=== PATIENT | male | born 1940 | race Caucasian/White ===

== ENCOUNTER 2021-05-03 10:47 | Emergency (ER) | payer BC, SELFPAY ==
[2021-05-03 11:57] VITALS: BP 109/64; PULSE 67; RESP 18; TEMP 36.7; O2SAT 97; BMI 26.6
--- NOTE | 2021-05-03 12:28 | HMH.EDUTC ---
[facility] Disposition Clinical Impression: Sinusitis Qualifiers: Sinusitis location: unspecified location Chronicity: unspecified Qualified Code(s): J32.9 - Chronic sinusitis, unspecified Disposition: Home, Self-Care Condition on Discharge: Good Instructions: Sinusitis, DI for Sinusitis, DI for COVID-19 (Suspected or Confirmed ), Preventing the Spread of Coronavirus Discharge Instructions Additional Instructions: *Monitor Temp, Over the counter Motrin or Tylenol as directed/as needed Tylenol every 4 hours and Motrin every 6 hours (as long as your family doctor has told you that you can take it) for fever or pain. and straight to ER if unable to lower temp less than 101.0 after medication given *Warm salt water gargles may help to soothe the throat *Throat Lozenges *Warm fluids like tea with honey may help to soothe the throat *Sleep elevated *Humidifier/Vaporizer *Flonase 2 sprays in each nostril daily but be aware that it may take 2-3 days before you notice improvement *Bromfed may cause drowsiness. Know how it effects you (your child) before driving, caring for small child, or sending your child to school. Not other antihistamines/allergy medications while taking bromfed Your throat swab was sent for culture. Those results are typically sent to your primary care. Be sure to follow up in 2-3 days with your family doctor/primary care physician if no improvement so they can review those result and treat if necessary. If you don?t have a primary care doctor, I recommend you get one but in the mean time, you will have to return to a walk in clinic Follow up IMMEDIATELY for new or worsening symptoms or no Noticeable improvement over the next 48-72 hours. 911 for difficulty breathing or swallowing You were tested for today for COVID19 your test result should be back in the next 24-48 hours, you was given handout on how to [facility] the [facility] to view your results if you cannot log on or do not have internet access you may call the [facility] You was given a handout with instructions for Self Quarantine and Self isolation for while you wait on test results and what to do if they are positive If you are positive the Health Dept will be contacting you also Make sure to take your Vitamins Vit. C Vit D and Zinc if you can take them Prescriptions: Amoxicillin/Potassium Clav [Augmentin 875-125 Tablet] 1 tab PO Q12H 7 Days #14 tab Transmission Status: Pending to [facility] Fluticasone Propionate [Flonase 50mcg nasal spray 16gm] 1 spr NS DAILY #1 each Transmission Status: Pending to [facility] Referrals: Ramon Magallanes [Primary Care Provider] - As needed Time of Disposition: 12:38 Medical Decision Making - Juan R Inquiry Pt receiving controlled substance: No Juan R was queried for this patient: No Vital Signs: 05/03/21 11:57 Temperature 98.0 F Temperature Source Temporal Artery Scan Pulse Rate [Right Brachial] 67 Respiratory Rate 18 Blood Pressure [Right Arm] 109/64 L Blood Pressure Mean [Right Arm] 79 Blood Pressure Source [Right Arm] Automatic Cuff Blood Pressure Position [Right Arm] Sitting 02 Sat by Pulse Oximetry 97 Oxygen Delivery Method Room Air Orders (Tests/Meds): ORDERS Category Date Time Status Covid-19 Nasal PCR ([facility]) Routine Lab 05/03/21 11:36 Received Medical Decision Narrative: Patient states that [facility] HPI - General Stated complaint: so, sore throat, headache, conestion body aches Time Seen by Provider: 05/03/21 12:00 Mode of Arrival: Ambulatory Source of Information: Patient Description of Symptoms (Recalled from Triage Doc. by RN): dry cough, weakness, headache, sob, fever, HEENT Symptoms (Recalled from RN notes): Yes Resp Symptoms (Recalled from RN notes): Yes Skin Symptoms (Recalled from RN notes): No MS Symptoms (Recalled from RN notes): No Functional Status (Recalled from RN notes): yes - History of Present Illness Provider Complaint: Patient state that h
[2021-05-03 12:50] VITALS: BP 109/64; PULSE 67; RESP 18; TEMP 36.7; O2SAT 97
== END 2021-05-03 12:50 | disposition home or self-care (01) ==
PROVIDERS: Emergency Provider Nurse Practitioner; PCP Internal Medicine
DX: J32.9 Chronic sinusitis, unspecified (principal); Z20.822 Contact with and (suspected) exposure to COVID-19
CPT/HCPCS: 99202; C9803; G0463; U0003; U0005

== ENCOUNTER → 2022-06-01 10:18 | Outpatient (POV) | payer BC, SELFPAY | PROVIDERS: Visit Provider Dermatology | DX: Z00.00 Encounter for general adult medical examination without abnormal findings (principal) ==

== ENCOUNTER 2022-07-04 15:04 | Emergency (ER) | payer BC, MEDICARE, SELFPAY ==
[2022-07-04 15:04] VITALS: BP 113/68; PULSE 87; RESP 18; TEMP 37.2; O2SAT 95; BMI 27.3
[2022-07-04 15:31] VITALS: BP 124/65; PULSE 89; RESP 20; O2SAT 90
[2022-07-04 15:38] LABS: Basophils # 0.1 K/mm3 (0-0.2); Basophils % 0.8 % (0.1-2.0); Eosinophils % 0.3 % (0.1-12.0); Hematocrit 36.4 % (42.0-52.0); Hemoglobin 12.1 g/dL (14.1-18.0); Lymphocytes # 0.7 K/mm3 (0.7-4.5); Lymphocytes % 5.6 % (10-50); Mean Corpuscular HGB Conc 33.4 g/dL (31.8-35.4); Mean Corpuscular Hemoglobin 31.7 pg (27.0-31.2); Mean Platelet Volume 7.9 fl (7.4-10.4); Monocytes # 1.1 K/mm3 (0.1-1.0); Monocytes % 8.5 % (1.7-9.3); Neutrophils # 10.6 K/mm3 (1.8-7.8); Neutrophils % 84.8 % (37.0-80.0); Platelet Count 371 K/mm3 (142-424); Red Blood Count 3.83 M/mm3 (4.60-6.20); Red Cell Distribution Width 12.8 % (11.5-17.5); White Blood Count 12.5 K/mm3 (4.8-10.8)
[2022-07-04 15:38] LABS: Coronavirus 19, PCR Not Detected (NotDetected); Influenza A, PCR Not Detected (NotDetected); Influenza B, PCR Not Detected (NotDetected)
[2022-07-04 15:41] LABS: Chloride 92 mmol/L (98-107); Potassium 3.4 mmoL/L (3.5-5.1); Sodium 130 mmol/L (136-145)
[2022-07-04 15:43] LABS: Alanine Aminotransferase 17 U/L (12-78); Aspartate Amino Transferase 24 U/L (17-59); Blood Urea Nitrogen 23 mg/dl (9-20); Creatinine Clearance Estimated 57 mL/min (50-200); Estimated Glomerular Filt Rate 58 ml/min (>60); GFR (African American) 70 ML/MIN (>60)
[2022-07-04 15:44] LABS: Albumin Level 3.7 g/dl (3.5-5.0); Alkaline Phosphatase 81 U/L (38-126); Anion Gap 13.4 mEq/L (5-15); Bilirubin,Total 0.9 mg/dl (0.2-1.3); Calcium 8.9 mg/dl (8.4-10.2); Carbon Dioxide 28 mmol/L (22.0-30.0); Globulin 3.6 g/dL (1.3-3.2); Glucose 131 mg/dl (74-100); Total Protein,Serum 7.3 g/dl (6.3-8.2)
--- NOTE | 2022-07-04 16:59 | HMH.EDGENADL ---
Discharge Plan Disposition Patient Disposition: Home, Self-Care Condition: Fair Prescriptions Prescriptions: New ciprofloxacin HCl [Cipro] 500 mg tablet 500 mg PO BID Qty: 20 0RF No Action tamsulosin 0.4 MG capsule 0.4 mg PO HS amlodipine 10 MG tablet 10 mg PO DAILY fluticasone propionate 120 SPR/BOT bottle 1 spr NS DAILY Qty: 1 0RF Rx Instructions: each nostril daily amoxicillin-pot clavulanate 1 EACH tablet 1 tab PO Q12H 7 Days Qty: 14 0RF Referrals Follow up/Referrals: Abhijeet Gerber MD [Primary Care Provider] - See instructions Activity Restrictions/Add. Instructions Additional Instructions/Restrictions: Cipro as prescribed. Start tomorrow. Follow-up with your urologist on Tuesday as scheduled. Additional instructions for URINARY TRACT INFECTION: Take antibiotic as prescribed. See your physician in 2-3 days for follow up and culture results. Return immediately if you have an uncontrollable fever greater than 102 degrees, severe back or abdominal pain, inability to urinate, or repetitive vomiting. Clinical Impressions Clinical Impression: Urinary tract infection Instructions Patient Instructions: DI for Urinary Tract Infection (UTI) Discharge ED Provider: Jonathan Man General Adult HPI General Chief complaint: Fever Stated complaint: vomiting Time Seen by Provider: 07/04/22 16:47 Mode of Arrival: EMS Source of Information: Patient Limitations: No Limitations Description of Symptoms (Recalled from ER Triage Doc. by RN): c/o fever, aches, chills and vomiting for 3 days. History of Present Illness HPI narrative: He does notPatient states that he has a urinary problem. States that he has urinary urgency get to the bathroom right away he will urinate on himself, states he is having to wear a diaper. States he is also had fevers, aches, and chills for the past 3 days. He does have a prior history of a urinary tract infection. States that he sees a urologist, in fact has an appointment on Tuesday. Denies flank or back pain. He says that he was plugged up , constipated, about 4 days ago and was having some pain in his lower abdomen to the left lower quadrant area, but he says that his constipation resolved and his pain went away, denies any current abdominal pain. He does have a cough. States he is occasionally a little short of breath. Related Data Home Medications Medication Instructions Recorded Confirmed amlodipine 10 mg tablet 10 mg PO DAILY bp 05/03/21 05/03/21 tamsulosin 0.4 mg capsule 0.4 mg PO HS prostate 05/03/21 05/03/21 Previous Rx's Medication Instructions Recorded amoxicillin 875 mg-potassium 1 tab PO Q12H 7 days #14 tabs 05/03/21 clavulanate 125 mg tablet fluticasone propionate 50 1 spr NS DAILY #1 ea 05/03/21 mcg/actuation nasal spray,suspension ciprofloxacin HCl 500 mg tablet 500 mg PO BID #20 tabs 07/04/22 (Cipro) Allergies Allergy/AdvReac Type Severity Reaction Status Date / Time No Known Allergies Allergy Verified 05/03/21 12:15 PFSH PFSH Social History Smoking Status: Never smoker alcohol intake: never current occupational status: other Travel in the last 8 weeks: None current occupational exposures/hazards: No ROS Obtained: Yes Systems reviewed as appropriate & no additional complaints except as documented Constitutional Constitutional: Reports body ache, Reports chills, Reports fever(s), Denies headache(s) and Denies weakness ENT Ears, Nose, Mouth, and Throat: Denies headache(s), Denies nasal discharge and Denies sore throat Cardiovascular Cardiovascular: Denies chest pain Respiratory Respiratory: Reports shortness of breath and Reports cough Gastrointestinal Gastrointestingal: Reports abdominal pain and constipation; Denies diarrhea or vomiting Genitourinary Male Genitourinary: Denies flank pain, Reports urinary incontinence and Reports urinary urgency Musculoskeletal Musculoskeletal:
[2022-07-04 17:00] LABS: Microscopic, Urine URINE MICROSCOPIC (MICROSCOPIC)
--- NOTE | 2022-07-04 17:00 | XR_ITS ---
PROCEDURE INFORMATION: Exam: XR Chest Exam date and time: 07/04/2022 5:06 PM Age: 82 years old Clinical indication: Cough and fever; Additional info: Cough, fever TECHNIQUE: Imaging protocol: Radiologic exam of the chest. Views: 2 views. COMPARISON: No relevant prior studies available. FINDINGS: Lungs: Mild prominence of the interstitial markings most pronounced at the lung bases. Superimposed regions of peribronchial thickening. Pleural spaces: Unremarkable. No pleural effusion. No pneumothorax. Heart/Mediastinum: Unremarkable. No cardiomegaly. Bones/joints: Spondylosis with multiple mild compression fracture deformities mid to lower thoracic spine most likely chronic. IMPRESSION: Findings suggesting changes of interstitial lung disease with superimposed mild changes of bronchitis.
[2022-07-04 17:08] LABS: Appearance,Urine SL CLOUDY (Clear); Bilirubin,Urine Negative (Negative); Blood, Urine 2+ (Negative); Color,Urine YELLOW (Yellow); Glucose,Urine (UA) Negative (Negative); Ketones,Urine 1+ (Negative); Leukocyte Esterase,Urine 3+ (Negative); Nitrate,Urine POSITIVE (Negative); Protein,Urine 2+ (Negative); Specific Gravity, Urine 1.025 (1.005-1.030); Urobilinogen,Urine 0.2 EU/dl (0.2)
[2022-07-04 17:14] LABS: WBC,Urine 20-50 #/hpf (0-3)
[2022-07-04 17:15] LABS: Bacteria,Urine 3+ /lpf; Squamous Epithelial Cell,Urine Occasional #/hpf (0-5)
--- NOTE | 2022-07-04 18:06 | PC.NURSE ---
LAB HERE TO DRAW LACTIC AND CULTURE . LULÚ NOT STARTED WAITING ON LAB
[2022-07-04 18:41] LABS: Lactic Acid 0.8 mmol/L (0.7-2.1)
[2022-07-04 19:23] VITALS: BP 106/44; PULSE 82; RESP 18; TEMP 37; O2SAT 97
== END 2022-07-04 19:26 | disposition home or self-care (01) ==
PROVIDERS: Emergency Provider Emergency Medicine; PCP Family Medicine
DX: N39.0 Urinary tract infection, site not specified (principal); K59.00 Constipation, unspecified; R06.02 Shortness of breath; S32.010A Wedge compression fracture of first lumbar vertebra, initial encounter for closed fracture; Z20.822 Contact with and (suspected) exposure to COVID-19; R05.9 Cough, unspecified; R11.10 Vomiting, unspecified; M79.10 Myalgia, unspecified site; Z79.52 Long term (current) use of systemic steroids; Z79.899 Other long term (current) drug therapy
CPT/HCPCS: 36415; 71046; 80053; 81001; 83605; 85025; 87040; 87077; 87086; 87088; 87186; 96374; 99284; C9803; J0696; J2405; U0003; U0005

== ENCOUNTER 2022-07-06 13:40 | Emergency (ER) | payer BC, MEDICARE, SELFPAY ==
[2022-07-06 13:41] VITALS: BP 119/69; PULSE 67; RESP 18; TEMP 36.4; O2SAT 99; BMI 26.6
[2022-07-06 14:30] VITALS: BP 124/62; PULSE 66; RESP 18; O2SAT 95
--- NOTE | 2022-07-06 14:58 | HMH.EDGENADL ---
Discharge Plan Disposition Patient Disposition: Home, Self-Care Condition: Good Chief Complaint: Recheck/Abnormal Lab/Rx Prescriptions Prescriptions: No Action ciprofloxacin HCl [Cipro] 500 mg tablet 500 mg PO BID Qty: 20 0RF tamsulosin 0.4 MG capsule 0.4 mg PO HS amlodipine 10 MG tablet 10 mg PO DAILY fluticasone propionate 120 SPR/BOT bottle 1 spr NS DAILY Qty: 1 0RF Rx Instructions: each nostril daily amoxicillin-pot clavulanate 1 EACH tablet 1 tab PO Q12H 7 Days Qty: 14 0RF Referrals Follow up/Referrals: Abhijeet Gerber MD [Primary Care Provider] - See instructions Activity Restrictions/Add. Instructions Additional Instructions/Restrictions: Your preliminary blood culture results show 1 set growing gram-positive cocci, staph. The other set of blood cultures is not growing anything. Your urine culture is growing gram-negative rods which is likely E. coli. Therefore the bacteria in your blood culture is not the same as the bacteria in your urine. This combination of findings is most likely caused by a urinary tract infection with E. coli, and blood culture bottles that are contaminated with staph and not an actual infection in your bloodstream. Continue taking Cipro as prescribed. See your primary care provider tomorrow. Return to the emergency department if worsening symptoms. Clinical Impressions Clinical Impression: Urinary tract infection Instructions Patient Instructions: DI for Urinary Tract Infection (UTI) Discharge ED Provider: Jonathan Man General Adult [facility] General Chief complaint: Recheck/Abnormal Lab/Rx Stated complaint: UTI, sent by Dr. Gerber Time Seen by Provider: 07/06/22 14:32 Mode of Arrival: Ambulatory Source of Information: Patient Limitations: No Limitations Description of Symptoms (Recalled from ER Triage Doc. by RN): Pt reports he was told to come back to the ER by his primary doctors office, states they were called with pt with lab results and told him to come back. Pt reports he was on his way to his already scheduled urology doctors appt but was told by doctors office to not to go appt and come back to the ER. After looking in pts chart and speaking with pts doctors office, states they were called by lab today with cultures results that were postive for staph . Pt reports did have a fever this morning, pt reports he is not feeling any better since ER visit on Tuesday but he is not feeling any worse. Pt reports his urinary incontinence has improved but not resolved. History of Present Illness HPI narrative: Patient states he was sent to the emergency department by his primary care doctor's office because of a positive preliminary blood culture result. The patient was seen by me in this emergency department 2 days ago for urinary tract infection. He had urine culture and blood cultures performed. He says that he was on his way to see his urologist today, was less than 1 mile away from his urologist office for his appointment when he got a call from his primary care doctor's office telling him that he should go back to the hospital because of a positive blood culture result. His urologist is at [facility], he says that he drove himself all the way back down here. On interaction with our nurse in the emergency department he was not sure whether he wanted to be seen in the emergency department but eventually decided that he did not want to be seen. He states that his urinary symptoms have improved since he was here on Tuesday. He felt feverish last night but says that he broke out in a sweat and feels like his fever broke without any specific treatment. He is not having any abdominal pain. He has chronic back pain which is unchanged from his usual. He is not vomiting. He feels generally weak. Related Data Home Medications Medication Instructions Recorded Confirmed amlodipine 10 mg tablet 10 mg PO DAILY bp
[2022-07-06 15:00] VITALS: BP 133/61; PULSE 62; O2SAT 97
[2022-07-06 15:15] VITALS: PULSE 63; O2SAT 97
[2022-07-06 15:31] VITALS: BP 133/61; PULSE 62; RESP 18; TEMP 36.4; O2SAT 97
== END 2022-07-06 15:31 | disposition home or self-care (01) ==
PROVIDERS: Emergency Provider Emergency Medicine; PCP Family Medicine
DX: N39.0 Urinary tract infection, site not specified (principal); R53.1 Weakness; R61 Generalized hyperhidrosis; R50.9 Fever, unspecified; M54.9 Dorsalgia, unspecified; G89.29 Other chronic pain; Z79.51 Long term (current) use of inhaled steroids
CPT/HCPCS: 99283

== ENCOUNTER 2022-07-30 14:59 | Inpatient (IN) | payer MEDICARE, BC, SELFPAY ==
[2022-07-30] VITALS (17 sets, daily range): BP systolic 75–213; BP diastolic 32–68; PULSE 75–120; RESP 16–31; TEMP 36.6–36.9; O2SAT 93–99; BMI 27.3; BMI 27.8
--- NOTE | 2022-07-30 15:38 | XR_ITS ---
FINAL REPORT CLINICAL HISTORY: soa COMPARISON: July 04, 2022 FINDINGS: A single portable view of the chest was obtained. The heart size and pulmonary vascularity are within normal limits. The mediastinum is within normal limits. There are persistent bibasilar opacities, favor atelectasis or scarring. The bony thorax is intact. IMPRESSION: Persistent bibasilar opacities favor atelectasis or scarring. Reviewed, Interpreted and Dictated by Guy Lozoya III, MD Transcribed by Radha Roman Authenticated and [facility]
--- NOTE | 2022-07-30 15:46 | HMH.EDGENADL ---
Discharge Plan Disposition Patient Disposition: Admitted As Inpatient Condition: Serious Chief Complaint: Weakness Prescriptions Prescriptions: No Action ciprofloxacin HCl [Cipro] 500 mg tablet 500 mg PO BID Qty: 20 0RF tamsulosin 0.4 MG capsule 0.4 mg PO HS amlodipine 10 MG tablet 10 mg PO DAILY fluticasone propionate 120 SPR/BOT bottle 1 spr NS DAILY Qty: 1 0RF Rx Instructions: each nostril daily amoxicillin-pot clavulanate 1 EACH tablet 1 tab PO Q12H 7 Days Qty: 14 0RF Referrals Follow up/Referrals: Provider,Referral, MD [Referring] - See instructions Clinical Impressions Clinical Impression: Acute UTI, Septic shock, Non-ST elevation [place] (NSTEMI), Lymphadenopathy, Respiratory failure Discharge ED Provider: Sunny Boudreaux General Adult HPI General Chief complaint: Weakness Stated complaint: possibly urinary infection Time Seen by Provider: 07/30/22 15:20 History of Present Illness HPI narrative: Patient is an 82-year-old male with recently diagnosed urinary tract infection on oral antibiotics who presents to the emergency department for evaluation of shortness of breath, dysuria, urinary frequency and urgency. Patient has had waxing and waning symptoms of shortness of breath over the last 2 months that have worsened over the last 3 days. Patient was previously treated for urinary tract infection with oral antibiotics for which he states symptoms significantly improved however over the last 48 hours he has had severe urgency for which he is unable to make it to the bathroom without voiding on himself. Patient is normally ambulatory at baseline and continues to be ambulatory, denies bowel incontinence, numbness or weakness of the bilateral lower extremities. Patient has mild cough which waxes and wanes. Denies current chest pain. No other acute complaints at this time. Per chart review patient had recent urinary tract infection of E. coli that was pansensitive. Related Data Home Medications Medication Instructions Recorded Confirmed amlodipine 10 mg tablet 10 mg PO DAILY bp 05/03/21 05/03/21 tamsulosin 0.4 mg capsule 0.4 mg PO HS prostate 05/03/21 05/03/21 Previous Rx's Medication Instructions Recorded amoxicillin 875 mg-potassium 1 tab PO Q12H 7 days #14 tabs 05/03/21 clavulanate 125 mg tablet fluticasone propionate 50 1 spr NS DAILY #1 ea 05/03/21 mcg/actuation nasal spray,suspension ciprofloxacin HCl 500 mg tablet 500 mg PO BID #20 tabs 07/04/22 (Cipro) Allergies Allergy/AdvReac Type Severity Reaction Status Date / Time No Known Allergies Allergy Verified 05/03/21 12:15 [facility] Disclaimer: The information contained in this section may have been updated after the patient was seen, as this information can be updated by other users. Social History Smoking Status: Never smoker alcohol intake: never current occupational status: other Travel in the last 8 weeks: None current occupational exposures/hazards: No ROS Obtained: Yes Systems reviewed as appropriate & no additional complaints except as documented Physical Exam General General appearance: alert and in no apparent distress Head Head exam: atraumatic and normocephalic Eye Eye exam: Present PERRL and EOMI ENT ENT exam: Present mucous membranes moist Neck Neck exam: Present normal inspection Chest Chest inspection: Present normal inspection and symmetric chest wall rise Respiratory Respiratory exam: Present normal lung sounds bilaterally; Absent respiratory distress Cardiovascular Cardiovascular exam: Present normal rhythm, tachycardia and other (No pitting edema) Abdominal Exam Abdominal exam: Present soft; Absent tenderness Extremities Exam Extremities exam: Present normal inspection Back Exam Back exam: Absent CVA tenderness (R) or CVA tenderness (L) Neurological Exam Neurological exam: Present alert and oriented X3 Psychiatric Psychiatric exam: Present no
[2022-07-30 15:52] LABS: Coronavirus 19, PCR Not Detected (NotDetected); Influenza A, PCR Not Detected (NotDetected); Influenza B, PCR Not Detected (NotDetected)
--- NOTE | 2022-07-30 15:57 | ECG_ITS ---
APPROVED REPORT Exam: Resting ECG HR:105 bpm ECG Measurements Heart Rate 105 AXES SC 128 P 30 QRSd 77 QRS 24 QT 344 T 80 QTc 405 Conclusion SINUS TACHYCARDIA NONSPECIFIC ST & T-WAVE ABNORMALITY ABNORMAL RHYTHM ECG UNCONFIRMED REPORT Electronically signed by : Deric Gomez MD 07/31/2022 12:53:03
[2022-07-30 15:58] LABS: Basophils % 0.6 % (0.1-2.0); Eosinophils % 0.1 % (0.1-12.0); Hematocrit 37.8 % (42.0-52.0); Hemoglobin 12.5 g/dL (14.1-18.0); Lymphocytes # 0.2 K/mm3 (0.7-4.5); Lymphocytes % 2.2 % (10-50); Mean Corpuscular Hemoglobin 31.2 pg (27.0-31.2); Mean Corpuscular Volume 94.6 fl (80-94); Mean Platelet Volume 7.6 fl (7.4-10.4); Monocytes # 0.1 K/mm3 (0.1-1.0); Monocytes % 1.4 % (1.7-9.3); Neutrophils # 6.4 K/mm3 (1.8-7.8); Neutrophils % 95.7 % (37.0-80.0); Platelet Count 205 K/mm3 (142-424); Red Blood Count 3.99 M/mm3 (4.60-6.20); White Blood Count 6.7 K/mm3 (4.8-10.8)
[2022-07-30 16:00] LABS: MANUAL DIFFERENTIAL MANUAL DIFFERENTIAL (MANUAL DIFF)
[2022-07-30 16:04] LABS: Lactic Acid 1.9 mmol/L (0.7-2.1)
[2022-07-30 16:04] LABS: Microscopic, Urine URINE MICROSCOPIC (MICROSCOPIC)
[2022-07-30 16:05] LABS: Alanine Aminotransferase 42 U/L (12-78); Albumin Level 3.8 g/dl (3.5-5.0); Albumin/Globulin Ratio 1.2 (1.1-1.8); Alkaline Phosphatase 100 U/L (38-126); Anion Gap 11.8 mEq/L (5-15); Aspartate Amino Transferase 56 U/L (17-59); Bilirubin,Total 2.2 mg/dl (0.2-1.3); Blood Urea Nitrogen 21 mg/dl (9-20); Calcium 9.3 mg/dl (8.4-10.2); Carbon Dioxide 25 mmol/L (22.0-30.0); Chloride 103 mmol/L (98-107); Creatinine Clearance Estimated 50 mL/min (50-200); Estimated Glomerular Filt Rate 53 ml/min (>60); GFR (African American) 64 ML/MIN (>60); Globulin 3.1 g/dL (1.3-3.2); Glucose 132 mg/dl (74-100); Potassium 3.8 mmoL/L (3.5-5.1); Sodium 136 mmol/L (136-145); Total Protein,Serum 6.9 g/dl (6.3-8.2)
[2022-07-30 16:09] LABS: Appearance,Urine TURBID (Clear); Blood, Urine 2+ (Negative); Color,Urine DK YELLOW (Yellow); Glucose,Urine (UA) Negative (Negative); Ketones,Urine 1+ (Negative); Leukocyte Esterase,Urine 3+ (Negative); Nitrate,Urine POSITIVE (Negative); PH,Urine 7.5 (5.0-8.5); Protein,Urine 2+ (Negative); Specific Gravity, Urine 1.015 (1.005-1.030); Urobilinogen,Urine 0.2 EU/dl (0.2)
[2022-07-30 16:09] LABS: D-Dimer 2.63 ug/mL (0.0-0.5)
[2022-07-30 16:12] LABS: Bilirubin,Urine 1+ (Negative)
[2022-07-30 16:16] LABS: NT Pro Brain Natriuretic Pep. 1750 pg/mL (0-450)
--- NOTE | 2022-07-30 16:17 | CT_ITS ---
PROCEDURE INFORMATION: Exam: CT Abdomen And Pelvis With Contrast Exam date and time: 07/30/2022 4:55 PM Age: 82 years old Clinical indication: Abdominal pain; Additional info: Abd pain TECHNIQUE: Imaging protocol: Computed tomography of the abdomen and pelvis with contrast. Radiation optimization: All CT scans at this facility use at least one of these dose optimization techniques: automated exposure control; mA and/or kV adjustment per patient size (includes targeted exams where dose is matched to clinical indication); or iterative reconstruction. Contrast material: ISOVUE; Contrast volume: 70 ml; Contrast route: IV; COMPARISON: CR XR CHEST PORTABLE 07/30/2022 4:21 PM FINDINGS: Lungs: Mild opacities in the lower lobes may represent atelectasis or pneumonia Heart: There is calcification of the aortic valve annulus. There is calcification of the mitral valve annulus. Coronary arteries: Coronary artery calcifications may indicate coronary artery disease. Liver: Normal. No mass. Gallbladder and bile ducts: Normal. No calcified stones. No ductal dilation. Pancreas: Normal. No ductal dilation. Spleen: Normal. No splenomegaly. Adrenal glands: Normal. No mass. Kidneys and ureters: 16 mm simple cyst right kidney . No follow-up imaging recommended . Nonobstructing left renal calculus ; no ureteral calculus Stomach and bowel: Unremarkable. No obstruction. No mucosal thickening. Appendix: No evidence of appendicitis. Intraperitoneal space: Unremarkable. No free air. No significant fluid collection. Vasculature: Unremarkable. No abdominal aortic aneurysm. Lymph nodes: Unremarkable. No enlarged lymph nodes. Urinary bladder: Martin catheter in the bladder Reproductive: The prostate is enlarged, greater than 5 cm. Recommend urology consult Bones/joints: Retrolisthesis L3 with respect to L2; anterolisthesis L4 with respect to L5. No acute fracture. Soft tissues: Unremarkable. IMPRESSION: The prostate is enlarged, greater than 5 cm. Recommend urology consult Nonobstructing left renal calculus ; no ureteral calculus COMMENTS: Consistent with the [employer]'s Incidental Findings Committee white paper (J Am Cuco Radiol 2018): Any incidental renal lesion less than 1 cm or classified as too small to characterize, or any incidental cystic renal lesion characterized as simple-appearing, is likely benign. No follow-up imaging is recommended for these lesions per consensus recommendations based on imaging criteria.
[2022-07-30 16:19] LABS: Lymphocytes % 8 % (10-50); Monocytes % 1 % (2-9); Neutrophils % 90 % (42-76); Platelet Estimate Normal; RBC Morphology Normal; Total Cells Counted 100
[2022-07-30 16:20] LABS: Troponin I 0.61 ng/ml (0.00-0.034)
--- NOTE | 2022-07-30 16:20 | PC.NURSE ---
notified ER of critical trop result
--- NOTE | 2022-07-30 16:22 | CT_ITS ---
PROCEDURE INFORMATION: Exam: CTA Chest With Contrast Exam date and time: 07/30/2022 4:55 PM Age: 82 years old Clinical indication: Shortness of breath; Additional info: Elevated d dimer TECHNIQUE: Imaging protocol: Computed tomographic angiography of the chest with contrast. 3D rendering (Not supervised by radiologist): MIP and/or 3D reconstructed images were created by the technologist. Radiation optimization: All CT scans at this facility use at least one of these dose optimization techniques: automated exposure control; mA and/or kV adjustment per patient size (includes targeted exams where dose is matched to clinical indication); or iterative reconstruction. Contrast material: ISOVUE 370; Contrast volume: 75 ml; Contrast route: INTRAVENOUS (IV); COMPARISON: CR XR CHEST PORTABLE 07/30/2022 4:21 PM FINDINGS: Pulmonary arteries: No evidence of pulmonary embolus to the segmental level. Aorta: No aneurysm of the aorta. No dissection of the aorta. Lungs: Mild opacities in the lower lobes may represent atelectasis or pneumonia. Pleural spaces: Unremarkable. No pneumothorax. No pleural effusion. Heart: Coronary artery calcifications may indicate coronary artery disease. Coronary arteries: Coronary artery calcifications may indicate coronary artery disease. Lymph nodes: Pathologic node anterior to the trachea 2.1 by 1.5 cm. Pathologic node anterior to the rachel 19 x 13 mm. Pathologic node in the AP window 20 x 12 mm . Bones/joints: Midthoracic compression fractures of unknown age Soft tissues: Unremarkable. IMPRESSION: 1. No evidence of pulmonary embolus to the segmental level. 2. No aneurysm of the aorta. 3. No dissection of the aorta. 4. Pathologic node anterior to the trachea 2.1 by 1.5 cm. Pathologic node anterior to the rachel 19 x 13 mm. Pathologic node in the AP window 20 x 12 mm .
[2022-07-30 16:28] LABS: Bacteria,Urine 3+ /lpf; Squamous Epithelial Cell,Urine Occasional #/hpf (0-5); WBC,Urine 20-50 #/hpf (0-3)
--- NOTE | 2022-07-30 16:28 | ECG_ITS ---
APPROVED REPORT Exam: Resting ECG HR:98 bpm ECG Measurements Heart Rate 98 AXES CA 141 P -52 QRSd 74 QRS 18 QT 333 T 54 QTc 388 Conclusion Sinus rhythm NONSPECIFIC ST & T-WAVE ABNORMALITY ABNORMAL RHYTHM ECG UNCONFIRMED REPORT Electronically signed by : Deric Gomez MD 07/31/2022 12:52:45
--- NOTE | 2022-07-30 19:11 | PC.NURSE ---
notified ER MD of bp 88/51 (map 61), gave verbal order for levophed drip, start at lowest dose
--- NOTE | 2022-07-30 19:15 | PC.NURSE ---
speaking with Manoj with the hospitalist program
--- NOTE | 2022-07-30 19:16 | PC.NURSE ---
Paged Dr. Rutherford
--- NOTE | 2022-07-30 19:17 | PC.NURSE ---
Dr. Boudreaux speaking with Dr. Rutherford
--- NOTE | 2022-07-30 19:18 | PC.NURSE ---
Notified House of admission
--- NOTE | 2022-07-30 19:41 | EXP.HP ---
History of Present Illness *Admission Date: 07/30/22 *Reason for visit:: Urinary Urgency, Fevers, Chills *History of present illness: Mr. Jung is a 82-year-old male with a past medical history of BPH and HTN. He presents to [facility] due to urinary urgency, feeling of incomplete bladder emptying, dysuria and increased frequency of urination that he reports has been ongoing and worsening over a 2-month period. The patient reports he has taken antibiotics prescribed by PCP for UTI with worsening of symptoms. He reports that over the last few days he also developed chills, shakes and fevers that were associated with weakness. He called 911 and was brought into the ER. In the ER the patient underwent CT of the abdomen and pelvis that showed an enlarged prostate of >5cm with a non-obstructing left renal calculus. Urinalysis showed 3 plus leukoesterase, was positive for nitrates, had 20-50 WBC and had 3 plus bacteria. Troponin was elevated at 0.61. He was hypotensive with blood pressures in the 80's systolic, he was given a fluid bolus at 40mg/kg with no improvement and was initially given Rocephin. His blood pressure did not improve with the bolus and he is now on a Levophed gtt. The patient will be admitted with initial impression: Septic Shock and UTI. He will be placed on broad spectrum antibiotics, he will be continued on pressor support to maintain a MAP of 65 or greater. Cultures will be ordered. The plan of care was discussed with the patient in length and detail at bedside on admission. The patient verbalized understanding and agreement with the plan of care. [facility] Disclaimer: The information contained in this section may have been updated after the patient was seen, as this information can be updated by other users. Medical History BPH (benign prostatic hyperplasia) Hypertension Surgical History Hx of neck surgery Previous back surgery Family History (Updated 07/30/22 @ 23:12 by Gloria Brooks RN) Hx of CABG Social History (Updated 07/30/22 @ 23:14 by Gloria Brooks RN) Smoking Status: Never smoker alcohol intake: never current occupational status: other Travel in the last 8 weeks: None current occupational exposures/hazards: No Review of Systems Review of Systems Review of systems:: pertinent systems reviewed and negative unless documented below Constitutional Constitutional: Reports chills, Reports fatigue, Reports fever(s), Reports lethargy, Reports malaise and Reports weakness Eyes Eyes: Reports system reviewed and no additional complaints, except as documented ENT Ears, Nose, Mouth, and Throat: Reports system reviewed and no additional complaints, except as documented *Cardiovascular Cardiovascular: Reports system reviewed and no additional complaints, except as documented *Respiratory Respiratory: Reports system reviewed and no additional complaints, except as documented *Gastrointestinal Gastrointestinal: Reports vomiting *Genitourinary Genitourinary: Reports difficulty urinating, Reports dysuria, Reports urinary frequency, Reports urinary hesitancy, Reports urinary incontinence and Reports urinary urgency *Musculoskeletal Musculoskeletal: Reports myalgias Integumentary/Breasts Skin/Breast: Reports system reviewed and no additional complaints, except as documented *Neurologic Neurologic: Reports system reviewed and no additional complaints, except as documented and Reports weakness Psychiatric Psychiatric: Reports system reviewed and no additional complaints, except as documented Endocrine Endocrine: Reports fatigue Hematologic/Lymphatic Hematologic/Lymphatic: Reports system reviewed and no additional complaints, except as documented Allergic/Immunologic Allergic/Immunologic: Reports system reviewed and no additional complaints, except as documented Meds
[2022-07-30 19:43] LABS: Troponin I 4.82 ng/ml (0.00-0.034)
--- NOTE | 2022-07-30 19:44 | PC.NURSE ---
Critical troponin results given to Dr. Boudreaux
--- NOTE | 2022-07-30 19:45 | ECG_ITS ---
APPROVED REPORT Exam: Resting ECG HR:79 bpm ECG Measurements Heart Rate 79 AXES FL 157 P 55 QRSd 81 QRS 57 QT 384 T 63 QTc 419 Conclusion SINUS RHYTHM NONSPECIFIC T-WAVE ABNORMALITY BORDERLINE ECG UNCONFIRMED REPORT Electronically signed by : Deric Gomez MD 08/02/2022 07:17:26
--- NOTE | 2022-07-30 20:53 | PC.NURSE ---
pt arrived to floor via stretcher @ 2051
[2022-07-30 22:06] LABS: Troponin I 6.77 ng/ml (0.00-0.034)
--- NOTE | 2022-07-30 22:32 | PC.NURSE ---
notified MAI Aranda of pt's critical troponin of 6.77, no new orders at this time
[2022-07-31] VITALS (16 sets, daily range): BP systolic 93–126; BP diastolic 42–71; PULSE 74–86; RESP 14–20; TEMP 36.6–37.9; O2SAT 94–97; BMI 27.8
--- NOTE | 2022-07-31 00:22 | EXP.SEPSISRE ---
[facility] Tissue Perfusion Eval Sepsis Re-Evaluation Performed: Yes Date Performed: 07/31/22 Time Performed: 00:22
--- NOTE | 2022-07-31 02:16 | PC.NURSE ---
2210-bp 112/65, decreased levophed drip to 2mg/min 2230-bp 127/77, held levophed drip at this time
--- NOTE | 2022-07-31 07:59 | EXP.ACUTE.PN ---
Subjective *Date: 07/31/22 *Time: 10:53 Interval history: Feeling October only better this morning. Hemodynamics more stable. Heart rate normal. Blood pressure stable off of any vasopressors. Weaning oxygen this morning, down to 1 L on rounds. Troponin elevated overnight but patient remains chest pain-free. Denies any nausea, vomiting, confusion. Feels he needs to have a bowel movement. Making adequate urine in Martin. Repeat EKG this morning with no ST abnormalities. Medical Exam Vital signs and Labs for Last 24 Hours: Vital Signs Temp Pulse Pulse Resp BP BP Pulse Ox 07/31/22 06:00 79 18 115/71 97 07/31/22 04:00 77 20 105/59 L 96 07/31/22 04:00 78 07/31/22 04:00 98.4 F 07/31/22 02:00 81 16 104/60 L 95 07/31/22 00:00 75 18 112/67 96 07/31/22 02:03 97 07/30/22 21:03 95 07/30/22 20:00 80 07/31/22 00:00 76 07/30/22 23:54 97.8 F 07/30/22 22:00 78 18 107/62 L 93 L 07/30/22 21:03 80 16 103/61 L 95 07/30/22 20:30 79 27 H 101/60 L 93 L 07/30/22 20:00 75 29 H 83/32 L 97 07/30/22 19:30 82 31 H 81/36 L 97 07/30/22 19:00 89 22 88/50 L 94 L 07/30/22 20:24 98 F 78 18 91/53 L 07/30/22 18:10 90 20 96/56 L 95 07/30/22 18:00 94 H 20 95/52 L 94 L 07/30/22 17:40 96 H 22 75/38 L 97 07/30/22 17:29 96 H 18 95/54 L 96 07/30/22 17:21 98 H 30 H 213/66 H 96 07/30/22 16:30 105 H 24 94/68 L 95 07/30/22 16:00 104 H 22 81/49 L 94 L 07/30/22 15:30 113 H 24 88/51 L 94 L 07/30/22 14:59 98.5 F 120 H 18 98/58 L 93 L Intake and Output 07/30/22 07/30/22 07/31/22 15:59 23:59 07:59 Intake Total 2.967 / 2.967 531 / 531 Output Total 600 / 600 400 / 400 Balance -597.033 / -597.033 131 / 131 Intake: Intake, Oral Amount 0 / 0 Intake, Total IV Amount 2.967 / 2.967 531 / 531 Cefepime HCl 2 gm In 0.9 % 100 / 100 Sodium Chloride 100 ml @ 200 mls/hr IV Q12H [facility] Rx#: [id number] Metronidaz/Sod Chl 500 mg In 100 / 100 100 ml @ 100 mls/hr IV Q8H [facility] Rx#:[id number] Norepinephrine Bitartrate 8 mg 31 / 31 In Dextrose 5 % in Water 250 ml @ 2 MCG/MIN 3.87 mls/hr IV . Q24H [facility] Rx#:[id number] Vancomycin/Water For Inj (Peg) 300 / 300 1.5 gm In 300 ml @ 150 mls/hr IV ONCE ONE Rx#:[id number] Output: Output, Urine Amount 400 / 400 0 / 0 Output, Urine Amount (Catheter) 200 / 200 400 / 400 Martin 200 / 200 400 / 400 Other: Number of Unmeasured Voids 0 0 Weight 79.379 kg 80.371 kg 80.399 kg Patient Weight 07/31/22 23:59 Weight 80.399 kg Laboratory Results - last 24 hr 07/30/22 15:07: WBC 6.7, RBC 3.99 L, Hgb 12.5 L, Hct 37.8 L, MCV 94.6 H, MCH 31.2, MCHC 33.0, RDW 14.0, Plt Count 205, MPV 7.6, Neut % (Auto) 95.7 H, Lymph % (Auto) 2.2 L, [place] % (Auto) 1.4 L, Eos % (Auto) 0.1, Baso % (Auto) 0.6, Neut # (Auto) 6.4, Lymph # (Auto) 0.2 L, [place] # (Auto) 0.1, Eos # (Auto) 0.0, Baso # (Auto) 0.0, Total Counted 100, Neutrophils % (Manual) 90 H, Band Neutrophils % 1.0, Lymphocytes % (Manual) 8 L, Monocytes % (Manual) 1 L, Platelet Estimate Normal, RBC Morphology Normal 07/30/22 15:07: D-Dimer 2.63 H 07/30/22 15:07: Sodium 136, Potassium 3.8, Chloride 103, Carbon Dioxide 25, Anion Gap 11.8, BUN 21 H, Creatinine 1.30 H, Estimated Creat Clear 50, Estimated GFR 53 L, Est GFR ( Amer) 64, Glucose 132 H, Calcium 9.3, Total Bilirubin 2.2 H, AST 56, ALT 42, Alkaline Phosphatase 100, Troponin I 0.61 H, NT-Pro-B Natriuret Pep 1750 H, Total Protein 6.9, Albumin 3.8, Globulin 3.1, Albumin/Globulin Ratio 1.2 07/30/22 15:07: Lactate 1.9 07/30/22 15:07: SARS-CoV-2 (PCR) Not detected, Influenza A Untype (PCR) Not detected, Influenza Type B (PCR) Not detected 07/30/22 15:48: Urine Color Dk yellow, Urine Appearance Turbid, Urine pH 7.5, Ur Specific [place] 1.015, Urine P
[2022-07-31 09:47] LABS: Basophils # 0.1 K/mm3 (0-0.2); Basophils % 0.6 % (0.1-2.0); Eosinophils # 0.1 K/mm3 (0.0-0.4); Eosinophils % 0.8 % (0.1-12.0); Hematocrit 33.2 % (42.0-52.0); Hemoglobin 11.4 g/dL (14.1-18.0); Lymphocytes # 1.1 K/mm3 (0.7-4.5); Lymphocytes % 14.6 % (10-50); Mean Corpuscular HGB Conc 34.3 g/dL (31.8-35.4); Mean Corpuscular Hemoglobin 31.8 pg (27.0-31.2); Mean Corpuscular Volume 92.8 fl (80-94); Mean Platelet Volume 7.9 fl (7.4-10.4); Monocytes # 0.5 K/mm3 (0.1-1.0); Monocytes % 6.4 % (1.7-9.3); Neutrophils # 5.9 K/mm3 (1.8-7.8); Neutrophils % 77.5 % (37.0-80.0); Platelet Count 180 K/mm3 (142-424); Red Blood Count 3.58 M/mm3 (4.60-6.20); White Blood Count 7.6 K/mm3 (4.8-10.8)
[2022-07-31 09:56] LABS: Chloride 106 mmol/L (98-107); Sodium 135 mmol/L (136-145)
[2022-07-31 09:57] LABS: Potassium 3.8 mmoL/L (3.5-5.1)
[2022-07-31 09:59] LABS: Anion Gap 9.8 mEq/L (5-15); Blood Urea Nitrogen 18 mg/dl (9-20); Carbon Dioxide 23 mmol/L (22.0-30.0); Creatinine Clearance Estimated 66 mL/min (50-200); Estimated Glomerular Filt Rate 81 ml/min (>60); GFR (African American) 98 ML/MIN (>60)
[2022-07-31 10:00] LABS: Calcium 8.5 mg/dl (8.4-10.2); Glucose 76 mg/dl (74-100); Magnesium 1.8 mg/dl (1.6-2.3)
--- NOTE | 2022-07-31 10:39 | ECG_ITS ---
APPROVED REPORT Exam: Resting ECG HR:75 bpm ECG Measurements Heart Rate 75 AXES CA 142 P 25 QRSd 86 QRS 47 QT 424 T 57 QTc 452 Conclusion SINUS RHYTHM NORMAL ECG UNCONFIRMED REPORT Electronically signed by : Deric Gomez MD 08/02/2022 07:17:07
--- NOTE | 2022-07-31 12:36 | EXP.PHA.CONS ---
Pharmacy Consult Date: 07/31/22 Time: 12:36 Referring provider: DR. WILDE Reason for Consult:: VANCOMYCIN DOSING Allergies Allergy/AdvReac Type Severity Reaction Status Date / Time No Known Allergies Allergy Verified 05/03/21 12:15 Home Medications Medication Instructions Recorded Confirmed Type amlodipine 10 mg tablet 10 mg PO DAILY bp 05/03/21 05/03/21 History amoxicillin 875 mg-potassium 1 tab PO Q12H 7 days #14 tabs 05/03/21 Rx clavulanate 125 mg tablet fluticasone propionate 50 1 spr NS DAILY #1 ea 05/03/21 Rx mcg/actuation nasal spray,suspension tamsulosin 0.4 mg capsule 0.4 mg PO HS prostate 05/03/21 05/03/21 History ciprofloxacin HCl 500 mg tablet 500 mg PO BID #20 tabs 07/04/22 Rx (Cipro) New Prescriptions to Start Prescriptions: Height: 1.7 m Weight: 80.399 kg Laboratory Results:: Laboratory Results - last 24 hr 07/30/22 15:07: WBC 6.7, RBC 3.99 L, Hgb 12.5 L, Hct 37.8 L, MCV 94.6 H, MCH 31.2, MCHC 33.0, RDW 14.0, Plt Count 205, MPV 7.6, Neut % (Auto) 95.7 H, Lymph % (Auto) 2.2 L, [place] % (Auto) 1.4 L, Eos % (Auto) 0.1, Baso % (Auto) 0.6, Neut # (Auto) 6.4, Lymph # (Auto) 0.2 L, [place] # (Auto) 0.1, Eos # (Auto) 0.0, Baso # (Auto) 0.0, Total Counted 100, Neutrophils % (Manual) 90 H, Band Neutrophils % 1.0, Lymphocytes % (Manual) 8 L, Monocytes % (Manual) 1 L, Platelet Estimate Normal, RBC Morphology Normal 07/30/22 15:07: D-Dimer 2.63 H 07/30/22 15:07: Sodium 136, Potassium 3.8, Chloride 103, Carbon Dioxide 25, Anion Gap 11.8, BUN 21 H, Creatinine 1.30 H, Estimated Creat Clear 50, Estimated GFR 53 L, Est GFR ( Amer) 64, Glucose 132 H, Calcium 9.3, Total Bilirubin 2.2 H, AST 56, ALT 42, Alkaline Phosphatase 100, Troponin I 0.61 H, NT-Pro-B Natriuret Pep 1750 H, Total Protein 6.9, Albumin 3.8, Globulin 3.1, Albumin/Globulin Ratio 1.2 07/30/22 15:07: Lactate 1.9 07/30/22 15:07: SARS-CoV-2 (PCR) Not detected, Influenza A Untype (PCR) Not detected, Influenza Type B (PCR) Not detected 07/30/22 15:48: Urine Color Dk yellow, Urine Appearance Turbid, Urine pH 7.5, Ur Specific [place] 1.015, Urine Protein 2+, Urine Glucose (UA) Negative, Urine Ketones 1+, Urine Blood 2+, Urine Nitrate Positive, Urine Bilirubin 1+ A, Urine Urobilinogen 0.2, Ur Leukocyte Esterase 3+ A, Urine RBC 5-10, Urine WBC 20-50, Ur Squamous Epith Cells Occasional, Urine Bacteria 3+ 07/30/22 18:33: Troponin I 4.82 H 07/30/22 21:23: Troponin I 6.77 H 07/31/22 09:07: WBC 7.6, RBC 3.58 L, Hgb 11.4 L, Hct 33.2 L, MCV 92.8, MCH 31.8 H, MCHC 34.3, RDW 14.0, Plt Count 180, MPV 7.9, Neut % (Auto) 77.5, Lymph % (Auto) 14.6, [place] % (Auto) 6.4, Eos % (Auto) 0.8, Baso % (Auto) 0.6, Neut # (Auto) 5.9, Lymph # (Auto) 1.1, [place] # (Auto) 0.5, Eos # (Auto) 0.1, Baso # (Auto) 0.1 07/31/22 09:07: Sodium 135 L, Potassium 3.8, Chloride 106, Carbon Dioxide 23, Anion Gap 9.8, BUN 18, Creatinine 0.90 D, Estimated Creat Clear 66, Estimated GFR 81, Est GFR ( Amer) 98 D, Glucose 76 D, Calcium 8.5, Magnesium 1.8 Medical History: Medical History (Updated 07/30/22 @ 20:00 by Manoj Spence DNP) BPH (benign prostatic hyperplasia) Hypertension Assessment and Plan Assessment and plan all Dx Assessment and Plan for all problems:: PATIENT RECEIVED VANCOMYCIN 1500 MG IV ONCE LAST NIGHT AT 2300. BASED ON PATIENT FACTORS, RECOMMEND VANCOMYCIN 1250 MG IV Q18H. WILL OBTAIN A VANCOMYCIN TROUGH LEVEL TOMORROW PRIOR TO 3RD DOSE. PHARMACY WILL CONTINUE TO MONITOR WHILE ON VANCOMYCIN.
--- NOTE | 2022-07-31 16:45 | PC.NURSE ---
Patient has been up to chair for most of shift, has been weaned to 1LNC, denies any cp or soa, lung sounds diminished t/o, abd soft and nontender, active bs in all quads, FC patent and draining clear yellow urine at bedside, alert and oriented x4, vss, call light in reach.
[2022-08-01 04:00] VITALS: BP 119/60; PULSE 84; RESP 17; TEMP 36.5; O2SAT 94; BMI 27.5
--- NOTE | 2022-08-01 05:56 | PC.NURSE ---
pt restless through night and did not sleep well, pt is alert and oriented x4, vss, no acute distress, f/c to bsd with cyu noted, no other issues or concerns noted at this time, pt without complaints of pain.
--- NOTE | 2022-08-01 06:48 | PC.NURSE ---
sherman catheter removed per motel food service supervisor orders at 0642, pt tolerated well, 250cc of cyu emptied.
[2022-08-01 06:51] LABS: Basophils % 0.5 % (0.1-2.0); Eosinophils # 0.1 K/mm3 (0.0-0.4); Eosinophils % 1.9 % (0.1-12.0); Hematocrit 33.8 % (42.0-52.0); Hemoglobin 11.1 g/dL (14.1-18.0); Lymphocytes # 1.5 K/mm3 (0.7-4.5); Lymphocytes % 20.5 % (10-50); Mean Corpuscular HGB Conc 32.9 g/dL (31.8-35.4); Mean Corpuscular Volume 94.4 fl (80-94); Mean Platelet Volume 8.2 fl (7.4-10.4); Monocytes # 0.5 K/mm3 (0.1-1.0); Monocytes % 7.2 % (1.7-9.3); Neutrophils % 69.9 % (37.0-80.0); Platelet Count 173 K/mm3 (142-424); Red Blood Count 3.58 M/mm3 (4.60-6.20); White Blood Count 7.1 K/mm3 (4.8-10.8)
[2022-08-01 07:01] LABS: Chloride 102 mmol/L (98-107); Potassium 3.4 mmoL/L (3.5-5.1); Sodium 132 mmol/L (136-145)
[2022-08-01 07:04] LABS: Alanine Aminotransferase 32 U/L (12-78); Albumin Level 3.2 g/dl (3.5-5.0); Albumin/Globulin Ratio 1.1 (1.1-1.8); Alkaline Phosphatase 92 U/L (38-126); Anion Gap 8.4 mEq/L (5-15); Aspartate Amino Transferase 79 U/L (17-59); Bilirubin,Total 0.4 mg/dl (0.2-1.3); Blood Urea Nitrogen 16 mg/dl (9-20); Calcium 8.6 mg/dl (8.4-10.2); Carbon Dioxide 25 mmol/L (22.0-30.0); Creatinine Clearance Estimated 65 mL/min (50-200); Estimated Glomerular Filt Rate 81 ml/min (>60); GFR (African American) 98 ML/MIN (>60); Globulin 2.9 g/dL (1.3-3.2); Glucose 92 mg/dl (74-100); Total Protein,Serum 6.1 g/dl (6.3-8.2)
[2022-08-01 07:05] LABS: Magnesium 1.5 mg/dl (1.6-2.3)
[2022-08-01 07:19] LABS: Troponin I 3.54 ng/ml (0.00-0.034)
[2022-08-01 07:42] VITALS: BP 118/65; PULSE 83; RESP 18; TEMP 36.6; O2SAT 95
[2022-08-01 08:00] VITALS: O2SAT 95
--- NOTE | 2022-08-01 08:44 | EXP.ACUTE.PN ---
Subjective *Date: 08/01/22 *Time: 08:44 Interval history: Patient back on oxygen this morning, will continue to try and wean today. Martin out this morning, thinks he needs to urinate, will assess for independent voiding. Complains of having had symptoms suggestive of overflow incontinence prior to admission. Would have the urge to pee but would lose control before he made it to the bathroom. Was scheduled to see a urologist 3 weeks ago, missed appointment due to coming to the hospital. Is very adamant that he only see a male urologist. Discussed his heart enzymes, troponin improving today. No chest pain, back pain, referred pains, nausea or vomiting, confusion. Discussed having patient see cardiology tomorrow. Explained to him my concerns of his elevated troponin with stress on his heart and that being a sign of underlying coronary artery disease. He stated he is 82 years old and is ready to tomorrow if that is what happens. Has no desire for further work-up or aggressive interventions. Medical Exam Vital signs and Labs for Last 24 Hours: Vital Signs Temp Pulse Pulse Resp BP BP Pulse Ox 08/01/22 08:00 95 08/01/22 07:42 97.8 F 83 18 118/65 95 07/31/22 20:00 80 08/01/22 04:00 97.7 F 84 17 119/60 94 L 07/31/22 23:46 97.9 F 77 17 122/66 95 07/31/22 22:00 114/64 07/31/22 20:00 96 07/31/22 19:55 100.2 F H 80 16 93/42 L 97 07/31/22 16:00 86 07/31/22 12:00 80 07/31/22 15:32 98.6 F 76 14 116/62 97 07/31/22 15:30 98.6 F 07/31/22 14:00 81 18 112/58 L 96 07/31/22 12:00 82 20 100/53 L 96 07/31/22 10:00 80 20 126/70 94 L Intake and Output 07/31/22 08/01/22 08/01/22 23:59 07:59 15:59 Intake Total 360 / 1901 560 / 560 Output Total 400 / 3375 1025 / 1025 Balance -40 / -1474 -465 / -465 Intake: Intake, Oral Amount 360 / 720 360 / 360 Intake, Total IV Amount 200 / 200 Cefepime HCl 2 gm In 0.9 % 100 / 100 Sodium Chloride 100 ml @ 200 mls/hr IV Q12H [facility] Rx#:[id number] Metronidaz/Sod Chl 500 mg In 100 / 100 100 ml @ 100 mls/hr IV Q8H [facility] Rx#:[id number] Output: Output, Urine Amount 400 / 2200 250 / 250 Output, Urine Amount (Catheter) 775 / 775 Martin 775 / 775 Other: Number of Unmeasured Voids 0 0 Weight 79.549 kg Patient Weight 08/01/22 23:59 Weight 79.549 kg Laboratory Results - last 24 hr 07/31/22 09:07: WBC 7.6, RBC 3.58 L, Hgb 11.4 L, Hct 33.2 L, MCV 92.8, MCH 31.8 H, MCHC 34.3, RDW 14.0, Plt Count 180, MPV 7.9, Neut % (Auto) 77.5, Lymph % (Auto) 14.6, [place] % (Auto) 6.4, Eos % (Auto) 0.8, Baso % (Auto) 0.6, Neut # (Auto) 5.9, Lymph # (Auto) 1.1, [place] # (Auto) 0.5, Eos # (Auto) 0.1, Baso # (Auto) 0.1 07/31/22 09:07: Sodium 135 L, Potassium 3.8, Chloride 106, Carbon Dioxide 23, Anion Gap 9.8, BUN 18, Creatinine 0.90 D, Estimated Creat Clear 66, Estimated GFR 81, Est GFR ( Amer) 98 D, Glucose 76 D, Calcium 8.5, Magnesium 1.8 08/01/22 06:33: WBC 7.1, RBC 3.58 L, Hgb 11.1 L, Hct 33.8 L, MCV 94.4 H, MCH 31.0, MCHC 32.9, RDW 14.0, Plt Count 173, MPV 8.2, Neut % (Auto) 69.9, Lymph % (Auto) 20.5, [place] % (Auto) 7.2, Eos % (Auto) 1.9, Baso % (Auto) 0.5, Neut # (Auto) 5.0, Lymph # (Auto) 1.5, [place] # (Auto) 0.5, Eos # (Auto) 0.1, Baso # (Auto) 0.0 08/01/22 06:33: Sodium 132 L, Potassium 3.4 L, Chloride 102, Carbon Dioxide 25, Anion Gap 8.4, BUN 16, Creatinine 0.90, Estimated Creat Clear 65, Estimated GFR 81, Est GFR ( Amer) 98, Glucose 92 D, Calcium 8.6, Magnesium 1.5 L D, Total Bilirubin 0.4, AST 79 H D, ALT 32, Alkaline Phosphatase 92, Troponin I 3.54 H, Total Protein 6.1 L, Albumin 3.2 L, Globulin 2.9, Albumin/Globulin Ratio 1.1 I & O for Labs for Last 24 Hours: Intake & Output 07/29/22 07/30/22 07/31/22 08/01/22 23:59 23:59 23:59 23:59 Intake Total 2.967 / 2.967 1701 / 1901 560 / 560 Output Total 600 / 600 2600 / 3375 1025 /
[2022-08-01 09:52] VITALS: BMI 27.5
[2022-08-01 10:58] LABS: Vancomycin,Trough 6.4 ug/mL (5.0-10.0)
[2022-08-01 11:23] VITALS: BP 125/65; PULSE 79; RESP 17; TEMP 36.9; O2SAT 99
--- NOTE | 2022-08-01 11:31 | PC.NURSE ---
report given to darien moon rn at this time.
--- NOTE | 2022-08-01 13:05 | EXP.PHA.CONS ---
Pharmacy Consult Date: 08/01/22 Time: 13:05 Referring provider: DR. WILDE Reason for Consult:: VANCOMYCIN TROUGH LEVEL Allergies Allergy/AdvReac Type Severity Reaction Status Date / Time No Known Allergies Allergy Verified 05/03/21 12:15 Home Medications Medication Instructions Recorded Confirmed Type tamsulosin 0.4 mg capsule 0.4 mg PO HS prostate 05/03/21 07/31/22 History sulfamethoxazole 800 1 tab PO BID Infection 07/31/22 07/31/22 History mg-trimethoprim 160 mg tablet New Prescriptions to Start Prescriptions: Height: 1.7 m Weight: 79.5 kg Laboratory Results:: Laboratory Results - last 24 hr 08/01/22 06:33: WBC 7.1, RBC 3.58 L, Hgb 11.1 L, Hct 33.8 L, MCV 94.4 H, MCH 31.0, MCHC 32.9, RDW 14.0, Plt Count 173, MPV 8.2, Neut % (Auto) 69.9, Lymph % (Auto) 20.5, [place] % (Auto) 7.2, Eos % (Auto) 1.9, Baso % (Auto) 0.5, Neut # (Auto) 5.0, Lymph # (Auto) 1.5, [place] # (Auto) 0.5, Eos # (Auto) 0.1, Baso # (Auto) 0.0 08/01/22 06:33: Sodium 132 L, Potassium 3.4 L, Chloride 102, Carbon Dioxide 25, Anion Gap 8.4, BUN 16, Creatinine 0.90, Estimated Creat Clear 65, Estimated GFR 81, Est GFR ( Amer) 98, Glucose 92 D, Calcium 8.6, Magnesium 1.5 L D, Total Bilirubin 0.4, AST 79 H D, ALT 32, Alkaline Phosphatase 92, Troponin I 3.54 H, Total Protein 6.1 L, Albumin 3.2 L, Globulin 2.9, Albumin/Globulin Ratio 1.1 08/01/22 10:10: Vancomycin Trough 6.4 Medical History: Medical History (Updated 07/30/22 @ 20:00 by Manoj Spence DNP) BPH (benign prostatic hyperplasia) Hypertension Assessment and Plan Assessment and plan all Dx Assessment and Plan for all problems:: PATIENT RECEIVED 2 DOSES OF VANCOMYCIN 1250 MG IV Q18H. TROUGH LEVEL TODAY PRIOR TO 3RD DOSE IS 6.4. RECOMMEND CHANGING INTERVAL OF VANCOMYCIN 1250 MG IV TO Q12H. PHARMACY WILL CONTINUE TO MONITOR AND ADJUST APPROPRIATE WHILE PATIENT IS ON VANCOMYCIN.
[2022-08-01 15:11] VITALS: BP 128/61; PULSE 77; RESP 17; TEMP 37.1; O2SAT 95
--- NOTE | 2022-08-01 18:11 | PC.NURSE ---
Pt is A/Ox4. FC was D/C. He has great output using the urinal. He has tolerated his diet well today. He has been weaned down to RA and has tolerated it well with o2 sat of 95%. No complaints of pain or needs at this time.
[2022-08-01 20:00] VITALS: BP 147/86; PULSE 70; RESP 18; TEMP 36.8; O2SAT 94
[2022-08-02] VITALS (23 sets, daily range): BP systolic 110–158; BP diastolic 54–89; PULSE 60–81; RESP 14–20; TEMP 36.3–37.4; O2SAT 90–97; BMI 27.4
--- NOTE | 2022-08-02 | IR_ITS ---
APPROVED REPORT Patient Location: Inpatient [facility] D[facility] Server: HANNY Chi RT (R) PROCEDURES Left heart catheterization Left ventriculogram Selective coronary angiogram Catheter placed in the left subclavian artery with left subclavian artery angiogram INDICATION Acute non-ST elevation myocardial infarction, Coronary artery disease, Left subclavian artery stenosis with preoperative evaluation prior to upcoming coronary bypass surgery Informed consent was obtained prior to the procedure. COMPLICATIONS None Estimated Blood Loss: Less than 10 ml TECHNIQUE One percent lidocaine used to anesthetize the right anterior aspect of the wrist. The right radial artery was accessed via the Seldinger technique. A 6 [place] sheath was placed in the right radial artery. 2.5 mg of verapamil, 800 mcg of nitroglycerin, 1mg Lidocaine and 5000 U Heparin were given through the arterial sheath. The papa catheter, AR-1 guide catheter and a 6 [place] BLANCO guide catheter were also used to perform left heart catheterization, left ventriculogram and selective coronary angiogram. At the end of the procedure the sheath was removed good hemostasis was achieved using Traclet band, patient was transferred to the postop holding area in stable condition. 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 and has a proximal calcified 70 to 80% stenosis with a distal 60 to 70% calcified stenosis The GAINES ventriculogram reveals Ejection fraction of 50% with mild anterior wall hypokinesis The left ventricular end-diastolic pressure 20 mmHg Left subclavian artery has a proximal calcified 20 to 30% stenosis with a widely patent left internal mammary artery IMPRESSION Critical coronary artery disease as described above with ejection fraction of 50% and mild anterior wall hypokinesis Mildly elevated LVEDP Nonflow limiting left subclavian artery with widely patent left internal mammary artery PLAN 1. Patient has critical coronary disease which is best served with coronary artery bypass surgery. I recommend transferring patient to [facility] soon as possible for surgical revascularization 2. Low-dose beta-blockers along with aspirin and low-dose nitrates 3. Start heparin drip 4. Start high intensity statin Electronically signed by : Artie Rutherford MD 08/02/2022 07:58:21
--- NOTE | 2022-08-02 04:53 | PC.NURSE ---
NO ACUTE CHANGES SINCE PREVIOUS ASSESSMENT. PT HAS RESTED INTERMITTENTLY THIS SHIFT. PT HAS C/O NAUSEA/ACID REFLUX X1 THIS SHIFT. HOSPITALIST ORDERED A GI COCKTAIL AND PT TOLERATED WELL. VSS. PT HAS USED THE URINAL INDEPENDENTLY. NPO FOR POSSIBLE HEART CATH THIS AM.
--- NOTE | 2022-08-02 05:00 | CA_ITS ---
APPROVED REPORT EXAM: Comprehensive 2D, Doppler, and color-flow Echocardiogram Senior Systems Engineer: Raven Noyola RDCS Ht: 5 ft 6 in Wt: 174lbs BSA: 1.88 BP: 148/89 mmHg Indications: NSTEMI CAD CABG 2D Dimensions LVOT 2.20 cm (M/F) 1.5-2.5 M-Mode Dimensions RVDd 1.91 cm (0.9-2.6) LA Diam 3.71 cm (1.9-4.0) LVDd 5.29 cm (3.5-5.7) Ao Diam 3.41 cm (2.0-3.7) LVDs 3.68 cm (3.5-5.7) IVSd 0.85 cm (0.6-1.1) PWd 1.06 cm (0.6-1.1) EF (Teich) 57.40% FS 30.40% EDV (Teich) 134.80 mL ESV (Teich) 57.40 mL LV Diastology E Decel Time 187.00 (160-240 msec) E/A Ratio 0.9 MED E' 6.50 (< 7 cm/sec) E'/MED E' Ratio 7.97 (>14) LAT E' 7.60 (<10 cm/sec) E/LAT E' Ratio 6.82 (>14) Aortic Valve LVOT Max 98.00 (70-110 cm/s) LVOT VTI 20.29 cm AoV Peak Vincent. 126.00 (50-130 cm/s) AO Peak GR. 6.30 mmHg AO Mean GR. 3.20 (<5 mmHg) AO VTI 24.78 (18-25 cm) MILAGROS (VTI) 3.11 (2.5-4.5 cm2) Mitral Valve MV E Max Vincent. 52.00 (40-130 cm/s) MV A Velocity 61.00 (40-130 cm/s) E/A Ratio 0.85 MV Decel. Time 187.00 (160-240 ms) MV PHT 55.00 ms Left Ventricle Left atrium is mildly enlarged, left ventricle is normal size mild concentric left ventricular hypertrophy, estimated ejection fraction 50% with no obvious regional wall motion abnormality, endocardial surfaces are poorly visualized, diastolic parameters are inconclusive. Right Ventricle Right atrium and right ventricle are normal size and contractility. Aortic Valve Aortic valve is thickened and calcified without Doppler evidence of aortic stenosis or aortic insufficiency. Mitral Valve Mitral valve leaflets are minimally thickened, there is mild mitral regurgitation. Tricuspid Valve Tricuspid valve grossly normal, there is mild tricuspid regurgitation, tricuspid regurgitation jet velocity is inadequate for calculation of the right ventricular systolic pressure. Pulmonic Valve Pulmonic valve is poorly visualized. Great Vessels Aortic root is normal size. Inferior vena cava is poorly visualized. Pericardium No significant pericardial effusion noted. Conclusion 1. Technically difficult study because of the patient factors and poor acoustic windows, endocardial surfaces are poorly visualized. Normal left ventricular size, mild concentric left ventricular hypertrophy, estimated ejection fraction 50% with no obvious regional wall motion abnormality, diastolic parameters are inconclusive. 2. Mild mitral and tricuspid regurgitation. 3. No significant pericardial effusion noted. 4. Inferior vena cava is poorly visualized. Electronically signed by : James Clayton MD 08/02/2022 21:53:42
--- NOTE | 2022-08-02 06:28 | EXP.CARD.CON ---
History of Present Illness History of Present Illness Consult date: 08/02/22 Requesting physician: Abhijeet Jenkins Consult reason: chest pain Chief complaint: UTI, NSTEMI Additional Medical History:: 1. Remote history of tobacco use discontinued 30 years ago 2. Family history of coronary artery disease in his father had bypass in his late 80s/early 90s but in his mid 90s 3. BPH with UTI, 07/2022 4. CAD A. Non-ST elevation VT, 07/30/2022, secondary to UTI/sepsis 5. 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 6. Mild anemia History of present illness: He presents to [facility] due to urinary urgency, feeling of incomplete bladder emptying, dysuria and increased frequency of urination that he reports has been ongoing and worsening over a 2-month period.? The patient reports he has taken antibiotics prescribed by PCP for UTI with worsening of symptoms.? He reports that over the last few days he also developed chills, shakes and fevers that were associated with weakness.? He called 911 and was brought into the ER. In the ER the patient underwent CT of the abdomen and pelvis that showed an enlarged prostate of >5cm with a non-obstructing left renal calculus.? Urinalysis showed 3 plus leukoesterase, was positive for nitrates, had 20-50 WBC and had 3 plus bacteria.? Troponin was elevated at 0.61.? He was hypotensive with blood pressures in the 80's systolic, he was given a fluid bolus at 40mg/kg with no improvement and was initially given Rocephin.? His blood pressure did not improve with the bolus and he is now on a Levophed gtt. The patient will be admitted with initial impression:? Septic Shock and UTI.? He will be placed on broad spectrum antibiotics, he will be continued on pressor support to maintain a MAP of 65 or greater.? Cultures will be ordered.? The plan of care was discussed with the patient in length and detail at bedside on admission.? The patient verbalized understanding and agreement with the plan of care.? The above per Dr. Jenkins, Hospitalist Patient admitted for UTI with symptoms as noted above Troponins have trended upward during his stay with peak troponin of 6.7 on 07/30/2022 and down to 3.54 on yesterday. No acute ST elevation on EKGs. Patient however does describe some indigestion/the need for belching sensation over the last month and a half. He did have this sensation again this morning which resolved with a GI cocktail. Review of recent CT of the chest shows extensive coronary artery calcification. Cardiology consulted for evaluation and recommendations. [facility] Disclaimer: The information contained in this section may have been updated after the patient was seen, as this information can be updated by other users. Medical History (Updated 08/02/22 @ 06:34 by SRINI Love) BPH (benign prostatic hyperplasia) Hypertension Surgical History Hx of neck surgery Previous back surgery Family History (Updated 07/30/22 @ 23:12 by Gloria Brooks RN) Hx of CABG Social History (Updated 07/30/22 @ 23:14 by Gloria Brooks RN) Smoking Status: Never smoker alcohol intake: never current occupational status: other Travel in the last 8 weeks: None current occupational exposures/hazards: No Review of Systems Review of Systems Review of systems:: pertinent systems reviewed and negative unless documented below Constitutional Constitutional: Reports weakness *Cardiovascular Cardiovascular: Reports chest pain and Reports dyspnea on exertion *Respiratory Respiratory: Denies cough and Reports dyspnea on exertion *Gastrointestinal Gastrointestinal: Reports belching, Reports heartburn and Denies vomiting *Genitourinary Genitourinary: Reports as per HPI and Reports difficulty urinating *Neurologic Neurologic: Reports system reviewed and no additional complaints, except as documented and Reports weakness Exam Data for Last 24 hour
[2022-08-02 07:00] LABS: Chloride 103 mmol/L (98-107); Potassium 3.4 mmoL/L (3.5-5.1); Sodium 136 mmol/L (136-145)
[2022-08-02 07:03] LABS: Anion Gap 10.4 mEq/L (5-15); Blood Urea Nitrogen 10 mg/dl (9-20); Carbon Dioxide 26 mmol/L (22.0-30.0); Creatinine Clearance Estimated 65 mL/min (50-200); Estimated Glomerular Filt Rate 93 ml/min (>60); GFR (African American) 112 ML/MIN (>60)
[2022-08-02 07:04] LABS: Calcium 8.7 mg/dl (8.4-10.2); Glucose 91 mg/dl (74-100)
[2022-08-02 07:16] LABS: Basophils # 0.1 K/mm3 (0-0.2); Basophils % 1.2 % (0.1-2.0); Eosinophils # 0.2 K/mm3 (0.0-0.4); Eosinophils % 3.2 % (0.1-12.0); Hematocrit 33.8 % (42.0-52.0); Hemoglobin 11.7 g/dL (14.1-18.0); Lymphocytes # 1.6 K/mm3 (0.7-4.5); Lymphocytes % 31.7 % (10-50); Mean Corpuscular HGB Conc 34.6 g/dL (31.8-35.4); Mean Corpuscular Hemoglobin 30.9 pg (27.0-31.2); Mean Corpuscular Volume 89.2 fl (80-94); Mean Platelet Volume 8.5 fl (7.4-10.4); Monocytes # 0.4 K/mm3 (0.1-1.0); Monocytes % 7.5 % (1.7-9.3); Neutrophils # 2.9 K/mm3 (1.8-7.8); Neutrophils % 56.4 % (37.0-80.0); Platelet Count 192 K/mm3 (142-424); Red Blood Count 3.79 M/mm3 (4.60-6.20); Red Cell Distribution Width 13.6 % (11.5-17.5)
--- NOTE | 2022-08-02 07:57 | PC.NURSE ---
Pt in label machine operator upon arriving this shift, report recieved from CHENCHO Godinez in label machine operator. Pt needs transferred for further intervention.
[2022-08-02 09:46] LABS: PTT Heparin (inpatient only) 46.2 Seconds (23.6-34.0)
--- NOTE | 2022-08-02 11:08 | EXP.DC.SUM ---
General Admission date:: 07/30/22 Discharge date: 08/02/22 HPI HPI HPI: Mr. Jung is a 82-year-old male with a past medical history of BPH and HTN. He presents to [facility] due to urinary urgency, feeling of incomplete bladder emptying, dysuria and increased frequency of urination that he reports has been ongoing and worsening over a 2-month period. The patient reports he has taken antibiotics prescribed by PCP for UTI with worsening of symptoms. He reports that over the last few days he also developed chills, shakes and fevers that were associated with weakness. He called 911 and was brought into the ER. In the ER the patient underwent CT of the abdomen and pelvis that showed an enlarged prostate of >5cm with a non-obstructing left renal calculus. Urinalysis showed 3 plus leukoesterase, was positive for nitrates, had 20-50 WBC and had 3 plus bacteria. Troponin was elevated at 0.61. He was hypotensive with blood pressures in the 80's systolic, he was given a fluid bolus at 40mg/kg with no improvement and was initially given Rocephin. His blood pressure did not improve with the bolus and he is now on a Levophed gtt. The patient will be admitted with initial impression: Septic Shock and UTI. He will be placed on broad spectrum antibiotics, he will be continued on pressor support to maintain a MAP of 65 or greater. Cultures will be ordered. The plan of care was discussed with the patient in length and detail at bedside on admission. The patient verbalized understanding and agreement with the plan of care. Hospital Course Hospital Course Hospital Course: 82-year-old male with past medical history of BPH, HTN presents with a 2-month reported history of dysuria, increased frequency of urination, feeling of incomplete bladder empyting and urinary incontinence and a 2-day history of fevers, myalgias, chills and weakness. Developed NSTEMI at presentation. Stabilized rapidly with fluids and antibiotics. Troponin trended down, EKG showed nonspecific changes but no ST elevations. Patient was asymptomatic. Monitored through the weekend with cardiology consult on Tuesday morning. Patient taken to the Physical Aerodynamicist with concerning findings as below. Problems addressed as follows: Septic Shock (POA), resolving Urinary tract infection - Criteria met on admission HR 120, RR 30, Source suspected UTI. Blood pressure 73/38, did not respond adequately to fluid bolus.? Required Levophed overnight. Weaned off after a few hours as blood pressure permitted. Cultures were obtained including blood culture and urine culture. No growth to date. Martin catheter was placed for monitoring of ins and outs. Additional diagnosis includes prostatitis given enlarged prostate with normal white cell count. Patient would benefit from urology consult, initially plan for outpatient consult as we do not have urology at [facility]. As the patient is transferring, recommend urology consult while inpatient to further evaluate for BPH/obstruction/prostatitis. Continuing cefepime and Flagyl. Discontinue vancomycin. Martin was removed on 08/01, patient making good urine and able to void independently. Having occasional incontinence due to need to urinate not being able to make it to the bathroom fast enough. Continuing Flomax. Initiated on finasteride. NSTEMI - Troponin elevated on admission at 0.61, peaked at 6.7.? Serial EKGs with nonspecific ST changes. Suspected type II NSTEMI secondary to supply demand ischemia from hypotension and tachycardia with sepsis. Cardiology consulted, evaluated patient on Tuesday morning with left heart cath for ischemic work-up. Had concerning findings with critical coronary artery disease. Recommendation for coronary artery bypass schemic changes or ST elevations. Cardiology assisted with transfer to cardiothoracic surgery at . Patient transferred for further management. Left heart cath angiographic results as f
[2022-08-02 12:32] LABS: PTT Heparin (inpatient only) 39.2 Seconds (23.6-34.0)
--- NOTE | 2022-08-02 16:11 | PC.NURSE ---
Have attempted x 3 times to remove radial band and bleeding occurs. Attempted when pt got to floor - via cheesemaking laborer RN, then at 1100, 1200, and 1330. Had removed 2 ml of air @ 1215 and had to reinflate at 1330. Pt did c/o of chest pressure and burning, ekg obtained and Mike whalen notified, SRINI and he ordered nitro, metoprolol, pecid and protonix per mar. These orders have seemed to help pt. Pt rates pain as none at this time. CB in reach and tele mx continues. Heparin gtt infusing per oct.
--- NOTE | 2022-08-02 17:58 | PC.NURSE ---
Have attempted to take radial band off and been unsuccessful last tried at 1700. SRINI Owusu aware of being unable to get band off at this time.
[2022-08-02 18:45] LABS: PTT Heparin (inpatient only) 65.7 Seconds (23.6-34.0)
--- NOTE | 2022-08-02 19:25 | PC.NURSE ---
Called Sterling at Night watch and reported ptt, no changes heparin gtt to stay at same ralph, repeat ptt in 6 hrs.
--- NOTE | 2022-08-02 21:15 | PC.NURSE ---
[facility] loading pt up at this time.
--- NOTE | 2022-08-02 21:18 | PC.NURSE ---
Pt left from at this time in route to [place] with [facility]
--- NOTE | 2022-08-03 08:41 | HMH.PHAHEP ---
[facility] Pharmacy Heparin Dosing Demographic Data Admission date:: 08/03/22 Date: 08/03/22 Time: 08:42 Allergies Allergy/AdvReac Type Severity Reaction Status Date / Time No Known Allergies Allergy Verified 05/03/21 12:15 Height: 1.7 m Weight: 79.3 kg Indication Medication therapy:: Heparin Current Active Problems (Updated 08/02/22 @ 17:16 by Abhijeet Jenkins MD) Anemia (Acute) HAMIDA (acute kidney injury) (Acute) Hypertension (Acute) Lymph nodes enlarged (Acute) BPH (benign prostatic hyperplasia) (Acute) NSTEMI (non-ST elevated myocardial infarction) (Acute) UTI (urinary tract infection) (Acute) Septic shock (Acute) Acute UTI (Acute) Septic shock (Acute) Non-ST elevation PA (NSTEMI) (Acute) Lymphadenopathy (Acute) Respiratory failure (Acute) CVA?: No Bleeding problem?: No Kidney disease?: Yes PA?: No Desired PTT range:: 50-75 seconds Monitoring Dose Monitor 1: Date: 08/02/22 Time: 09:15 PTT Result:: 46.2 Infusion Rate:: NO BOLUS, RECEIVED HEPARIN 5000 UNIT BOLUS IN UNDERWATER TRAPPER. STARTED DRIP AT 950 UNITS/HR. Dose Monitor 2: Date: 08/02/22 Time: 11:56 PTT Result:: 39.2 Infusion Rate:: INCREASED RATE TO 1250 UNITS/HR AND REBOLUSED WITH Dose Monitor 3: Date: 08/03/22 Time: 09:38 PTT Result:: 65.7 Infusion Rate:: patient transferred to Core Measures Is INR > or = 2 at discharge?: No Most Recent Labs:: Laboratory Results - last 24 hr 07/30/22 15:48: Urine Color Dk yellow, Urine Appearance Turbid, Urine pH 7.5, Ur Specific [place] 1.015, Urine Protein 2+, Urine Glucose (UA) Negative, Urine Ketones 1+, Urine Blood 2+, Urine Nitrate Positive, Urine Bilirubin 1+ A, Urine Urobilinogen 0.2, Ur Leukocyte Esterase 3+ A, Urine RBC 5-10, Urine WBC 20-50, Ur Squamous Epith Cells Occasional, Urine Bacteria 3+ 08/02/22 09:19: APTT 46.2 H 08/02/22 11:56: APTT 39.2 H 08/02/22 18:10: APTT 65.7 H* If INR was < than 2.0 why was therapy stopped?: transferred Were Heparin and Warfarin started on the same day?: No If not, why?: transferred
== END 2022-08-02 21:20 | disposition short-term general hospital (02) | DRG 871 ==
LOC: ER 19:28 → 2ND 19:35
PROVIDERS: Internal Medicine; Admitting Provider Internal Medicine Adolescent Medicine; Emergency Provider Emergency Medicine; PCP Family Medicine; Visit Provider Internal Medicine Adolescent Medicine
PROC: 4A023N7 Measurement of Cardiac Sampling and Pressure, Left Heart, Percutaneous Approach (ICD-10-PCS; principal; 2022-08-02 07:10)
DX: A41.9 Sepsis, unspecified organism (principal); I21.4 Non-ST elevation (NSTEMI) myocardial infarction; J96.90 Respiratory failure, unspecified, unspecified whether with hypoxia or hypercapnia; R65.21 Severe sepsis with septic shock; N39.0 Urinary tract infection, site not specified; N17.9 Acute kidney failure, unspecified; I25.10 Atherosclerotic heart disease of native coronary artery without angina pectoris; N40.0 Benign prostatic hyperplasia without lower urinary tract symptoms; I10 Essential (primary) hypertension; Z85.828 Personal history of other malignant neoplasm of skin; D64.9 Anemia, unspecified; I70.8 Atherosclerosis of other arteries
CPT/HCPCS: 36225; 36415; 71045; 71275; 74177; 80048; 80053; 80202; 81001; 83605; 83735; 83880; 84484; 85007; 85025; 85378; 85730; 87040; 87086; 87088; 87186; 93005; 93306; 93458; 99152; 99153; C1725; C1769; C9803; G0378; J0696; J1644; J3475; Q9967; U0003; U0005

== ENCOUNTER → 2022-10-06 10:47 | Outpatient (CLI) | payer BC, SELFPAY ==
--- NOTE | 2022-10-06 10:47 | NM_ITS ---
APPROVED REPORT Exam: Nuclear Stress Test Indication: SOB, Palpitations, Fatigue, CAD, HTN, High cholesterol, Family history Patient Location: Outpatient Stress Tech: Ava Ramon [place] Tech:Mercy Hernández, ARRT, RT (R)(N) Ht: 5 ft 9 in Wt: 180 lbs HR: 47 bpm BP: 196/75 mmHg BSA: 1.98 m2 TID: 1.04 BMI: 26.5 History: SOB, Palpitations, Fatigue, CAD, HTN, High cholesterol, Family history Procedure: Patient received 0.4 mg of intravenous Lexiscan, resting heart rate 47 bpm, resting blood pressure 196/75 mmHg, with Lexiscan maximum heart rate achieved was 84 bpm which is Less than 85 % of the maximum predicted heart rate and blood pressure was 196/75 mmHg. With Lexiscan, patient denied any complaint of chest pain. Electrocardiogram Resting electrocardiogram shows sinus bradycardia, with Lexiscan there is less than 1.[address] segment depression noted from the baseline EKG. The EKG portion of the Lexiscan is nondiagnostic. Cardiac Stress and Resting SPECT Images: Cardiac Stress and Resting SPECT images were obtained using technetium 99m Myoview 32.0 mCi stress and 10.12 mCi at rest. Gated SPECT analysis of segmental wall motion and calculation of the ejection fraction also done. Prone images were also obtained. Cardiac stress and rest respectively show uniform myocardial activity without segmental perfusion abnormality, computer derived ejection fraction is 57% with no regional wall motion abnormality, right ventricle is normal size and contractility. Conclusion: 1. The EKG portion of the Lexiscan is nondiagnostic. 2. No scintigraphic evidence of reversible ischemia seen, computer derived ejection fraction 57% with no regional wall motion abnormality, right ventricle is normal size and contractility. 3. Normal Lexiscan Myoview study. Electronically signed by : James Clayton MD 10/06/2022 18:39:38
--- NOTE | 2022-10-06 12:49 | CA_ITS ---
APPROVED REPORT Exam: Pharmacologic Technologist: Ava Posadas, Ht: 5 ft 7 in Wt: 170 lbs BSA: 1.89 m2 HR: 48 bpm BP: 196/75 mmHg Medical History Medications: Aspirin,,,,, Metoprolol Tartrate,,,,, Pantoprazole,,,,, Atorvastatin,,,,, Plavix,,,,, Magnesium,,,,, Finasteride,,,,, Nitroglycerin,,,,, MeLATONIN,,,,, PolyethYLENE,,,,, TAMSUosin,,,,, Stress Test Details Test: LEXISCAN Reason for pharmacologic stress test: physical limitation. HR Resting HR: 47 bpm Max Heart Rate (APMHR): 139.412832 bpm Max HR Achieved: 84 bpm Target HR (85% APMHR): 118.077958 bpm % of APMHR: 60.43 Recovery HR: 71 bpm BP Resting BP: 196/75 mmHg Max BP: 196/75 mmHg Recovery BP: 166.0/82.0 mmHg ECG Resting ECG: Sinus Homero @ 49 bpm Clinical Reason for Termination: Completed Protocol Exercise duration: 04:02 min Highest Stage Achieved: Exercise capacity: 1.0 METs Stress ECG Conclusion Symptoms: none Arrhythmias/Ectopy: none ST-T Changes: <1.5mm ST Segment changes Conclusion: Non-Diagnostic Test Summary REST . . . . . . . Resting REST 09:16 . . 47 . 196/ 75 . . Stage 1 01:00 . . 73 . . . . Stage 2 01:00 . . 82 . 155/ 74 . . Stage 3 01:00 . . 72 . 145/ 75 . . Stage 4 01:00 . . 64 . 148/ 73 . . Stage 4 01:02 . . 64 . 148/ 73 . Stop exercise at 04:02 RECOVERY 01:00 . . 79 . . . . RECOVERY 01:35 . . 79 . 166/ 82 . . Electronically signed by : James Clayton MD 10/06/2022 18:28:54
--- NOTE | 2022-10-06 12:57 | HMH.ITSHM ---
Current Home Medications as stated by this patient Burke Jung or credit resolution representative. []TAMSULOSIN PANTOPRAZOLE NITRO METOPROLOL MELATONIN MAGNESIUM FINASTERIDE CLOPIDOGREL ATORVASTATIN ASA
== END ==
PROVIDERS: PCP Family Medicine; Visit Provider Physician Assistant
DX: R06.00 Dyspnea, unspecified (principal); I25.10 Atherosclerotic heart disease of native coronary artery without angina pectoris
CPT/HCPCS: 78452; 93017; A9502; J2785

== ENCOUNTER → 2022-12-20 09:26 | Outpatient (CLI) | payer BC, SELFPAY ==
--- NOTE | 2022-12-20 09:26 | CT_ITS ---
FINAL REPORT TECHNIQUE: Axial CT with contrast with 3-D MIP reconstruction CLINICAL HISTORY: SELAM amanda CT CHEST 07/30/2022 COMPARISON: July 2022 FINDINGS: Pulmonary vessels enhance in normal fashion without evidence of embolism. Thoracic aorta shows no dissection or aneurysm. Oval nodule in the posterior right upper lobe measuring 8 mm was probably on the prior exam but obscured by atelectasis. 2 mm left lower lobe nodule on image 47. Resolved bilateral lower lobe opacities. There is no significant pleural effusion. There is no significant pericardial effusion. Mild adenopathy scattered throughout the mediastinum is unchanged and considered benign reactive. Largest node measures up to 19 x 9 mm unchanged in lower right paratracheal region. IMPRESSION: Stable mild adenopathy favored benign reactive. Resolved lower lobe opacities likely resolved atelectasis or pneumonia. Nonspecific subcentimeter nodules are strongly favored benign. Reviewed, Interpreted and Dictated by Rachel Rodriguez MD Transcribed by Krishna Crabtree Authenticated and [facility]
[2022-12-20 09:47] LABS: Blood Urea Nitrogen 16 mg/dl (9-20); Estimated Glomerular Filt Rate 64 ml/min (>60); GFR (African American) 78 ML/MIN (>60)
== END ==
PROVIDERS: PCP Family Medicine; Visit Provider Physician Assistant
DX: R06.09 Other forms of dyspnea (principal); I25.10 Atherosclerotic heart disease of native coronary artery without angina pectoris; I10 Essential (primary) hypertension; E78.5 Hyperlipidemia, unspecified; R49.0 Dysphonia; R94.31 Abnormal electrocardiogram [ECG] [EKG]
CPT/HCPCS: 36415; 71260; 82565; 84520; Q9967

== ENCOUNTER 2023-01-13 12:44 | Emergency (ER) | payer BC, SELFPAY ==
[2023-01-13 13:00] VITALS: BP 121/72; PULSE 76; RESP 18; TEMP 36.8; O2SAT 99; BMI 28.8
--- NOTE | 2023-01-13 13:16 | EXP.UTC ---
Discharge Plan Disposition Patient Disposition: Home, Self-Care Condition: Good Prescriptions Prescriptions: No Action atorvastatin 40 mg tablet 40 mg PO HS melatonin 3 mg tablet 3 mg PO HS magnesium oxide 400 mg (241.3 mg magnesium) tablet 400 mg PO DAILY nitroglycerin 0.4 mg tablet, sublingual 0.4 mg sublingual Q5-15M PRN polyethylene glycol 3350 17 gram/dose powder 17 g PO DAILY clopidogrel [Plavix] 75 mg tablet 75 mg PO DAILY Qty: 30 11RF amlodipine [Norvasc] 10 mg tablet 10 mg PO DAILY Qty: 30 2RF metoprolol succinate [Toprol XL] 25 mg tablet extended release 24 hr 25 mg PO DAILY Qty: 30 5RF isosorbide mononitrate 30 mg tablet extended release 24 hr 30 mg PO DAILY Qty: 30 2RF aspirin 81 mg Tablet,Delayed Release (Dr/Ec) 81 mg PO DAILY Qty: 0 0RF finasteride 5 mg Tablet 5 mg PO HS Qty: 0 0RF pantoprazole 40 mg Tablet,Delayed Release (Dr/Ec) 40 mg PO HS Qty: 0 0RF tamsulosin 0.4 MG capsule 0.4 mg PO HS Referrals Follow up/Referrals: Abhijeet Gerber MD [Primary Care Provider] - See instructions Activity Restrictions/Add. Instructions Additional Instructions/Restrictions: Suture instructions: ?You have required stitches today. Please read the following instructions so you know how to care for them: ?1. Keep wound area dry for the first 24 hours. 2?? May clean gently with mild soap and water, after 48 hours to prevent crusting over suture knots. 3. You may shower if your provider gives permission but do not take a bath until the skin is healed.. 4. Never leave a wet dressing or Band-Aid on your stitches as this allows bacteria to reach the area and may cause infection. Band-aids can cause the wound to sweat and not recommended to wear for long periods of time Watch for signs of infection: ? Increasing redness, tenderness or warmth around the suture site ? Unusual swelling around the site ? Appearance of pus around each suture or any red streaks ? Fever If you develop any of the above signs or symptoms of infection, Follow up with Family Physician immediately 5. Suture removal in _10-12___days 6. Return to [facility] or follow up with family doctor for removal. This can be done by any medical provider dur?ing regular hours on Tuesday through Tuesday, by appointment. Clinical Impressions Clinical Impression: Laceration Instructions Patient Instructions: DI for Laceration Repair, DI for Laceration Repair -- Simple Discharge ED Provider: Senait Quinones [facility] [place] HPI General Stated complaint: [id number]@[email or web address]@[id number] lac on Lt middle finger Mode of Arrival: Ambulatory Source of Information: Patient Limitations: No Limitations Time Seen by Provider: 01/13/23 13:15 Description of Symptoms (Recalled from Triage Doc. by RN): PATIENT C/O LACERATION TO LEFT MIDDLE FINGER AFTER CUTTING IT ON HIS RING TODAY HEENT Symptoms (Recalled from RN notes): No Resp Symptoms (Recalled from RN notes): No Skin Symptoms (Recalled from RN notes): Yes MS Symptoms (Recalled from RN notes): No Functional Status (Recalled from RN notes): WNL History of Present Illness Provider Complaint: Patient states that was getting into his truck when he slipped and grabbed the air compressor and notice laceration to inside of bottom of left middle finger States that he can feel everything but noticed it was open and needed some stitches Related Data Home Medications Medication Instructions Recorded Confirmed tamsulosin 0.4 mg capsule 0.4 mg PO HS prostate 05/03/21 12/20/22 atorvastatin 40 mg tablet 40 mg PO HS 08/23/22 12/20/22 magnesium oxide 400 mg (241.3 mg 400 mg PO DAILY 08/23/22 12/20/22 magnesium) tablet melatonin 3 mg tablet 3 mg PO HS 08/23/22 12/20/22 nitroglycerin 0.4 mg sublingual 0.4 mg sublingual Q5-15M PRN 08/23/22 12/20/22 tablet polyethylene glycol 3350 17 17 g PO DAILY 08/23/22 12/20/22 gram/dose oral powder Previous Rx's Medication Instructions Recorded asp
[2023-01-13 14:05] VITALS: BP 121/72; PULSE 76; RESP 18; TEMP 36.8; O2SAT 99
== END 2023-01-13 14:07 | disposition home or self-care (01) ==
PROVIDERS: Emergency Provider Nurse Practitioner; PCP Family Medicine
DX: S61.213A Laceration without foreign body of left middle finger without damage to nail, initial encounter (principal); I10 Essential (primary) hypertension; W26.8XXA Contact with other sharp object(s), not elsewhere classified, initial encounter
CPT/HCPCS: 12001; 99213; 99214; G0463

== ENCOUNTER 2023-04-07 10:00 | Day surgery (SDC) | payer BC, SELFPAY ==
[2023-04-07] VITALS (17 sets, daily range): BP systolic 122–176; BP diastolic 57–97; PULSE 50–76; RESP 17–20; TEMP 36.6; O2SAT 90–100; BMI 27.7
--- NOTE | 2023-04-07 07:06 | IR_ITS ---
APPROVED REPORT Patient Location: Outpatient PROCEDURES Selective coronary angiogram Drug-eluting stent deployment to the ostial proximal circumflex artery extending into the first obtuse marginal artery Drug-eluting stent deployment to the proximal LAD INDICATION Coronary artery disease, Accelerated angina pectoris Informed consent was obtained prior to the procedure. COMPLICATIONS NONE Estimated Blood Loss: LESS THAN 10 ML TECHNIQUE One percent lidocaine used to anesthetize the right anterior aspect of the wrist. The right radial artery was accessed via the Seldinger technique. A 6 [place] sheath was placed in the right radial artery. 2.5 mg of Verapamil, 800 mcg of nitroglycerin, 1mg Lidocaine and 5000 U Heparin were given through the arterial sheath. The papa catheter was also used to perform selective coronary angiography of the left coronary system. Therapeutic heparin was administered giving a therapeutic ACT and the EBU 3.75 guide catheter was placed in the left main artery followed by Choice PT extra-support wire being placed on the circumflex artery and into the first obtuse marginal artery. A 3 mm balloon was used to predilate the struts going into the left circumflex artery from the left main artery. Following this a 3 mm x 38 mm [place] frontier stent was placed in the distal left main artery extending into the ostial circumflex artery and into the first obtuse marginal artery and deployed at 20 gilma. A 3.5 x 20 mm balloon was then placed in the ostial circumflex artery extending into the proximal circumflex artery and deployed at 20 gilma. This produced excellent angiograph results with SHASTA-3 flow being present before and after the procedure. Following this a Choice PT extra-support wire was placed down the LAD and a 3.5 x 38 mm [place] frontier stent was placed in the proximal LAD and deployed at 20 gilma reducing this severe stenosis to 0%. SHASTA-3 flow was present before and after the procedure. Multiple guide catheter was used to intubate the the right coronary artery however satisfactory angiography could not be performed despite using an AR-1 an AR-2 and an AL-1 guide catheter. Because of the nondominant nature of the right coronary artery it was decided not to perform additional angiography and subject patient to increased risk of contrast nephropathy. At this point the apparatus was removed the sheath was removed and hemostasis was achieved using TR banding patient was transferred to the postop floor in stable condition ANGIOGRAPHIC RESULTS The left main artery Has an ostial 30% stenosis followed by a stent in the proximal segment which extends into the proximal LAD. The left anterior descending artery Has a long proximal 60 to 70% stenosis. The mid LAD is widely patent while the distal LAD has 70% stenosis as the LAD wraps the apex The circumflex artery Is a dominant vessel and has an ostial 80 to 90% eccentric stenosis followed by an additional proximal 70% stenosis with 70% stenosis in the proximal portion of the first obtuse marginal artery. 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 Continue with dual antiplatelet therapy 2. Maximize antianginal medications 3. Should pa
[2023-04-07 10:39] LABS: Basophils # 0.1 K/mm3 (0-0.2); Basophils % 1.3 % (0.1-2.0); Eosinophils # 0.3 K/mm3 (0.0-0.4); Eosinophils % 5.6 % (0.1-12.0); Hematocrit 37.9 % (42.0-52.0); Hemoglobin 12.5 g/dL (14.1-18.0); Lymphocytes # 1.3 K/mm3 (0.7-4.5); Lymphocytes % 30.2 % (10-50); Mean Corpuscular HGB Conc 32.9 g/dL (31.8-35.4); Mean Corpuscular Hemoglobin 31.7 pg (27.0-31.2); Mean Corpuscular Volume 96.2 fl (80-94); Mean Platelet Volume 8.8 fl (7.4-10.4); Monocytes # 0.3 K/mm3 (0.1-1.0); Monocytes % 7.6 % (1.7-9.3); Neutrophils # 2.4 K/mm3 (1.8-7.8); Neutrophils % 55.2 % (37.0-80.0); Platelet Count 254 K/mm3 (142-424); Red Blood Count 3.94 M/mm3 (4.60-6.20); Red Cell Distribution Width 13.8 % (11.5-17.5); White Blood Count 4.4 K/mm3 (4.8-10.8)
[2023-04-07 10:57] LABS: Chloride 104 mmol/L (98-107); Potassium 3.8 mmoL/L (3.5-5.1); Sodium 141 mmol/L (136-145)
[2023-04-07 11:00] LABS: Anion Gap 14.8 mEq/L (5-15); Blood Urea Nitrogen 18 mg/dl (9-20); Calcium 9.5 mg/dl (8.4-10.2); Carbon Dioxide 26 mmol/L (22.0-30.0); Creatinine Clearance Estimated 53 mL/min (50-200); Estimated Glomerular Filt Rate 53 ml/min (>60); GFR (African American) 64 ML/MIN (>60); Glucose 106 mg/dl (74-100)
--- NOTE | 2023-04-07 15:17 | P.CONPHA_ITS ---
[facility] Discharge Med Help Desk Support Specialist: Burke Jung has received discharge medication counseling on the following medications: ASPIRIN 81 MG DAILY ATORVASTATIN 40 MG HS CLOPIDOGREL 75 MG DAILY METOPROLOL 25 MG DAILY MD NOT WANTING RONNIE/ARB AT THIS TIME.
[2023-04-07 15:22] LABS: CATHL Activated Clotting Time 369 SEC (74-125)
[2023-04-07 15:23] LABS: CATHL Activated Clotting Time 262 SEC (74-125)
== END 2023-04-07 17:58 | disposition home or self-care (01) ==
PROVIDERS: PCP Family Medicine; Visit Provider Internal Medicine
DX: I25.118 Atherosclerotic heart disease of native coronary artery with other forms of angina pectoris (principal); E78.5 Hyperlipidemia, unspecified; I10 Essential (primary) hypertension; R94.31 Abnormal electrocardiogram [ECG] [EKG]
CPT/HCPCS: 80048; 85025; 85347; 92928; 93458; 99152; 99153; C1725; C1769; C1874; C1876; C9600; J1644; Q9967

== ENCOUNTER → 2023-04-08 10:59 | Outpatient (CLI) | payer BC, SELFPAY ==
[2023-04-08 11:56] LABS: Basophils % 0.6 % (0.1-2.0); Eosinophils # 0.3 K/mm3 (0.0-0.4); Eosinophils % 4.9 % (0.1-12.0); Hematocrit 36.4 % (42.0-52.0); Hemoglobin 12.1 g/dL (14.1-18.0); Lymphocytes # 1.7 K/mm3 (0.7-4.5); Lymphocytes % 30.2 % (10-50); Mean Corpuscular HGB Conc 33.2 g/dL (31.8-35.4); Mean Corpuscular Hemoglobin 31.8 pg (27.0-31.2); Mean Corpuscular Volume 95.8 fl (80-94); Mean Platelet Volume 7.7 fl (7.4-10.4); Monocytes # 0.4 K/mm3 (0.1-1.0); Monocytes % 7.5 % (1.7-9.3); Neutrophils # 3.3 K/mm3 (1.8-7.8); Neutrophils % 56.8 % (37.0-80.0); Platelet Count 242 K/mm3 (142-424); Red Cell Distribution Width 13.7 % (11.5-17.5); White Blood Count 5.8 K/mm3 (4.8-10.8)
[2023-04-08 12:31] LABS: Anion Gap 14.3 mEq/L (5-15); Blood Urea Nitrogen 16 mg/dl (9-20); Calcium 9.3 mg/dl (8.4-10.2); Carbon Dioxide 28 mmol/L (22.0-30.0); Chloride 104 mmol/L (98-107); Estimated Glomerular Filt Rate 53 ml/min (>60); GFR (African American) 64 ML/MIN (>60); Glucose 101 mg/dl (74-100); Potassium 4.3 mmoL/L (3.5-5.1); Sodium 142 mmol/L (136-145)
== END ==
PROVIDERS: PCP Family Medicine; Visit Provider Internal Medicine
DX: I25.10 Atherosclerotic heart disease of native coronary artery without angina pectoris (principal); Z95.5 Presence of coronary angioplasty implant and graft
CPT/HCPCS: 36415; 80048; 85025

== ENCOUNTER → 2023-05-05 09:09 | Outpatient (CLI) | payer BC, SELFPAY | PROVIDERS: PCP Family Medicine; Visit Provider Internal Medicine Pulmonary Disease | DX: R06.09 Other forms of dyspnea (principal) | CPT/HCPCS: 94060; 94618; 94726; 94729 ==

== ENCOUNTER → 2023-05-31 13:29 | Outpatient (CLI) | payer BC, SELFPAY ==
--- NOTE | 2023-05-31 13:30 | CT_ITS ---
FINAL REPORT TECHNIQUE: Thin section axial CT images with coronal and sagittal reformats were performed through the neck. This study was performed with techniques to keep radiation doses as low as reasonably achievable (ALARA). Individualized dose reduction techniques using automated exposure control or adjustment of mA and/or kV according to the patient's size were employed. CLINICAL HISTORY: Very hoarse, vocal cord inflamed COMPARISON: None FINDINGS: No adenopathy or mass lesion is present . Salivary glands are normal. The nasopharynx is unremarkable. There has been prior anterior cervical fusion of the C4-C7 vertebral bodies. There is irregularity of the true vocal cord, of uncertain etiology. This may represent inflammation versus scarring, although neoplasm is not excluded. There are small nonspecific cervical nodes identified. Multilevel neural foraminal narrowing is present. There are mild changes of emphysema and scarring in the lung apices. Thyroid gland is unremarkable. IMPRESSION: Irregularity of the true vocal cord, of uncertain etiology. While this may represent inflammation or scarring, neoplasm cannot be excluded. Direct visualization is suggested. Small nonspecific cervical nodes identified bilaterally. Reviewed, Interpreted and Dictated by Guy Lozoya III, MD Transcribed by Sabine Cruz Authenticated and [facility]
== END ==
PROVIDERS: PCP Family Medicine; Visit Provider Nurse Practitioner
DX: J38.4 Edema of larynx (principal); R49.0 Dysphonia
CPT/HCPCS: 70490

== ENCOUNTER → 2023-06-30 13:28 | Outpatient (CLI) | payer BC, SELFPAY ==
--- NOTE | 2023-06-30 13:46 | CT_ITS ---
FINAL REPORT TECHNIQUE: Thin section axial CT images with coronal reformats were obtained through the neck after the administration of IV contrast. This study was performed with techniques to keep radiation doses as low as reasonably achievable (ALARA). Individualized dose reduction techniques using automated exposure control or adjustment of mA and/or kV according to the patient''s size were employed. CLINICAL HISTORY: PARALYSIS LT VOCAL FOLD COMPARISON: Is in 1723 FINDINGS: Images are degraded by streak artifact from anterior fusion hardware bridging C4-5, C5-6, and C6-7. There are advanced hypertrophic changes of degenerative disc disease at the C3-4 level. There are multiple mediastinal lymph nodes. A right paratracheal lymph node measures up to 1.8 cm. There are few small scattered cervical lymph nodes. The paranasal sinuses are well aerated. There is mild narrowing of the proximal left internal carotid artery. There is mild irregularity of the left true vocal cord contour, similar to the prior study. IMPRESSION: Nonspecific mediastinal adenopathy. Mild contour abnormality of the left true vocal cord which is stable. Again, direct visualization may be of value. Reviewed, Interpreted and Dictated by Gavin Orlando MD Transcribed by Christi Dorman Authenticated and [facility]
[2023-06-30 14:17] LABS: Blood Urea Nitrogen 15 mg/dl (9-20); Estimated Glomerular Filt Rate 53 ml/min (>60); GFR (African American) 64 ML/MIN (>60)
== END ==
PROVIDERS: PCP Family Medicine; Visit Provider Internal Medicine
DX: J38.01 Paralysis of vocal cords and larynx, unilateral (principal)
CPT/HCPCS: 36415; 70491; 82565; 84520; Q9967

== ENCOUNTER 2024-01-01 14:08 | Observation (INO) | payer SELFPAY ==
[2024-01-01] VITALS (13 sets, daily range): BP systolic 110–147; BP diastolic 62–89; PULSE 71–124; RESP 14–30; TEMP 36.4–36.9; O2SAT 90–100; BMI 25.8; BMI 25.7
--- NOTE | 2024-01-01 14:11 | PC.NURSE ---
DR WEINBERG AT BEDSIDE
--- NOTE | 2024-01-01 14:24 | CT_ITS ---
PROCEDURE INFORMATION: Exam: CTA Chest With Contrast Exam date and time: 01/01/2024 3:12 PM Age: 83 years old Clinical indication: Dyspnea; Additional info: Dyspnea, h/o esophageal CA TECHNIQUE: Imaging protocol: Computed tomographic angiography of the chest with contrast. Exam focused on the arteries. 3D rendering (Not supervised by radiologist): MIP and/or 3D reconstructed images were created by the technologist. Radiation optimization: All CT scans at this facility use at least one of these dose optimization techniques: automated exposure control; mA and/or kV adjustment per patient size (includes targeted exams where dose is matched to clinical indication); or iterative reconstruction. Contrast material: ISOVUE; Contrast volume: 75 ml; Contrast route: INTRAVENOUS (IV); COMPARISON: CT ANGIO CHEST PE PROTOCOL 30/07/2022 16:55 FINDINGS: Pulmonary arteries: No evidence of a pulmonary embolus. Aorta: There is ectasia of the thoracic aorta but no evidence of an aneurysm or dissection. Other arteries: Calcified and noncalcified plaques at the carotid bulbs on each side. There is a high-grade focal stenosis in the proximal right internal carotid artery which appears to be 80% or greater. Lungs: Stable 7-8 mm nodule in the posterior right upper lobe. Stable old calcified granuloma left lower lobe. Interstitial prominence throughout all lung zones. Centrilobular emphysema. Pleural spaces: Unremarkable. No pneumothorax. No pleural effusion. Heart: Unremarkable. No cardiomegaly. No pericardial effusion. Coronary arteries: Extensive calcified coronary artery disease. Lymph nodes: Unremarkable. No enlarged lymph nodes. Kidneys and ureters: Partially imaged 14 mm left renal cortical lesion, likely a cyst. Bones/joints: Unremarkable. No acute fracture. Soft tissues: Suspected vascular coils in the left supraclavicular fossa. IMPRESSION: 1. No evidence of PE and no evidence of aortic dissection 2. Extensive calcified coronary artery disease 3. 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 Centrilobular emphysema 5. Stable 7-8 mm noncalcified nodule in the right upper lobe 6. Extensive motion degradation artifacts throughout the chest. No consolidating infiltrates are seen COMMENTS: Consistent with the [employer]'s Incidental Findings Committee white paper (J Am Cuco Radiol 2018): Any incidental renal lesion less than 1 cm or classified as too small to characterize, or any incidental cystic renal lesion characterized as simple-appearing, is likely benign. No follow-up imaging is recommended for these lesions per consensus recommendations based on imaging criteria.
--- NOTE | 2024-01-01 14:36 | ED_ITS ---
Discharge Plan Disposition Patient Disposition: Admitted Prescriptions Prescriptions: No Action atorvastatin 40 mg tablet 40 mg PO HS melatonin 3 mg tablet 3 mg PO HS magnesium oxide 400 mg (241.3 mg magnesium) tablet 400 mg PO DAILY nitroglycerin 0.4 mg tablet, sublingual 0.4 mg sublingual Q5-15M PRN (Reason: cp) polyethylene glycol 3350 17 gram/dose powder 17 g PO DAILY multivitamin [Daily Multi-Vitamin] Tablet 1 tab PO DAILY omeprazole 20 mg capsule,delayed release(DR/EC) PO amlodipine 10 mg tablet See Rx Instructions .ROUTE .COMPLEX Qty: 90 1RF Rx Instructions: TAKE 1 TABLET BY MOUTH EVERY DAY metoprolol succinate [Toprol XL] 25 mg tablet extended release 24 hr 25 mg PO DAILY Qty: 90 1RF clopidogrel [Plavix] 75 mg tablet 75 mg PO DAILY Qty: 90 1RF isosorbide mononitrate 30 mg tablet extended release 24 hr See Rx Instructions .ROUTE .COMPLEX Qty: 90 3RF Dose Instruction: TAKE 1 TABLET BY MOUTH EVERY DAY Rx Instructions: TAKE 1 TABLET BY MOUTH EVERY DAY aspirin 81 mg tablet,delayed release (DR/EC) 81 mg PO DAILY finasteride 5 mg tablet 5 mg PO HS tamsulosin 0.4 mg capsule 0.4 mg PO HS Referrals Follow up/Referrals: Provider,Referral, [Referring] - See instructions Clinical Impressions Clinical Impression: Decreased oral intake, Acute dehydration, Fatigue, Radiation adverse effect Discharge ED Provider: Sunny Boudreaux General Adult HPI <Mike Vaca MD - Last Filed: 01/01/24 14:42> General Chief complaint: Shortness of Breath/Dyspnea Stated complaint: weakness Time Seen by Provider: 01/01/24 14:09 Mode of Arrival: EMS Source of Information: Patient and Relative Limitations: No Limitations Description of Symptoms (Recalled from ER Triage Doc. by RN): pt has hx of esophageal cancer and finished radiation treatment two weeks ago, is here today due to increase in secretions, poor intake and increased SOA. pt has not had any home meds in a month History of Present Illness HPI narrative: Patient is an 83-year-old male with a history of esophageal cancer who recently finished radiation treatment 2 weeks ago presenting today with multiple complaints. He has been unable to swallow solid foods several weeks ago was on some steroids with some improvement now is having difficult time keeping any of his secretions down has had significant poor intake has been unable to take his other medications and presents with shortness of breath increasing fatigue and decreased p.o. intake as stated above. No fevers or chills or cough. Related Data Home Medications Medication Instructions Recorded Confirmed atorvastatin 40 mg tablet 40 mg PO HS Cholesterol 08/23/22 10/17/23 magnesium oxide 400 mg (241.3 mg 400 mg PO DAILY Supplement 08/23/22 10/17/23 magnesium) tablet melatonin 3 mg tablet 3 mg PO HS sleep 08/23/22 10/17/23 nitroglycerin 0.4 mg sublingual 0.4 mg sublingual Q5-15M PRN cp 08/23/22 10/17/23 tablet polyethylene glycol 3350 17 17 g PO DAILY bowel 08/23/22 10/17/23 gram/dose oral powder multivitamin (Daily Multi-Vitamin 1 tab PO DAILY Supplement 04/06/23 10/17/23 tablet) aspirin 81 mg tablet,delayed 81 mg PO DAILY daily 04/07/23 10/17/23 release finasteride 5 mg tablet 5 mg PO HS urination 04/07/23 10/17/23 omeprazole 20 mg capsule,delayed mg PO 07/21/23 10/17/23 release tamsulosin 0.4 mg capsule 0.4 mg PO HS prostate 07/21/23 10/17/23 Previous Rx's Medication Instructions Recorded amlodipine 10 mg tablet See Rx Instructions .Route 06/06/23 .COMPLEX htn #90 tabs metoprolol succinate 25 mg 25 mg PO DAILY htn #90 tabs 06/06/23 tablet,extended release 24 hr (Toprol XL) clopidogrel 75 mg tablet (Plavix) 75 mg PO DAILY stent #90 tabs 08/03/23 isosorbide mononitrate 30 mg See Rx Instructions .Route 09/07/23 tablet,extended release 24 hr .COMPLEX #90 tabs Allergies Allergy/AdvReac Type Severity Reaction Status Date / Time No Known Allergies Allergy Verified 10/17/23 10:53 [facility] <Mike Vaca MD - Last Filed: 01/01/24 14:42> [facility] Disclaimer: The information contained in this section may have been updated after the patient was seen, as this information can be updated by other users. Medical History BPH (benign prostatic hyperplasia) Dysphonia Encounter for pre-operative cardiovascular clearance Hoarseness Hypertension Impacted cerumen of right ear Mediastinal lymphadenopathy Multiple lung nodules on CT Pulmonary emphysema Stopped smoking with greater than 30 pack year history Vocal cord edema Vocal cord mass Surgical History Hx of neck surgery Previous back surgery Family History Other Hx of CABG Social History Smoking Status: Never smoker alcohol intake: never current occupational status: other Travel in the last 8 weeks: None current occupational exposures/hazards: No <Mike Vaca MD - Last Filed: 01/01/24 14:42> ROS Obtained: Yes All systems reviewed & no additional complaints except as documented Physical Exam <Mike Vaca MD - Last Filed: 01/01/24 14:42> General General appearance: alert Respiratory Respiratory exam: Present normal lung sounds bilaterally and other (Hoarse voice which is at his baseline); Absent respiratory distress Cardiovascular Cardiovascular exam: Present regular rate and normal rhythm Abdominal Exam Abdominal exam: Present soft; Absent distention or tenderness Neurological Exam Neurological exam: Present alert and oriented X3 Medical Decision Making <Mike Vaca MD - Last Filed: 01/01/24 14:42> Juan R Inquiry Pt receiving controlled substance: No Vital Signs: 01/01/24 14:04 01/01/24 14:30 01/01/24 15:00 Temperature 98.0 F Temperature Source Oral Pulse Rate 80 71 Pulse Rate [Right Radial] 81 Respiratory Rate 20 21 30 H Blood Pressure 132/86 132/81 Blood Pressure [Right Arm] 145/82 H Blood Pressure Mean [Right Arm] 103 02 Sat by Pulse Oximetry 98 93 L 96 Oxygen Delivery Method Nasal Cannula Room Air Oxygen Flow Rate (LPM) 2 01/01/24 15:31 01/01/24 16:00 01/01/24 16:30 Temperature Temperature Source Pulse Rate 96 H 85 89 Pulse Rate [Right Radial] Respiratory Rate 26 H 19 30 H Blood Pressure 112/77 129/72 Blood Pressure [Right Arm] Blood Pressure Mean [Right Arm] 02 Sat by Pulse Oximetry 96 96 99 Oxygen Delivery Method Nasal Cannula Nasal Cannula Nasal Cannula Oxygen Flow Rate (LPM) 3 3 3 01/01/24 17:00 01/01/24 17:30 01/01/24 18:00 Temperature Temperature Source Pulse Rate 89 124 H 91 H Pulse Rate [Right Radial] Respiratory Rate 24 25 H 25 H Blood Pressure 110/62 122/73 136/82 Blood Pressure [Right Arm] Blood Pressure Mean [Right Arm] 02 Sat by Pulse Oximetry 100 97 98 Oxygen Delivery Method Nasal Cannula Room Air Room Air Oxygen Flow Rate (LPM) 3 01/01/24 18:30 01/01/24 19:00 Temperature Temperature Source Pulse Rate 85 83 Pulse Rate [Right Radial] Respiratory Rate 15 17 Blood Pressure 122/67 113/62 Blood Pressure [Right Arm] Blood Pressure Mean [Right Arm] 02 Sat by Pulse Oximetry 93 L 90 L Oxygen Delivery Method Room Air Room Air Oxygen Flow Rate (LPM) Lab Data Lab Results 01/01/24 14:00: WBC 7.7, RBC 4.46 L, Hgb 14.3, Hct 40.8 L, MCV 91.6, MCH 32.1 H, MCHC 35.1, RDW 14.3, Plt Count 305, MPV 7.6, Neut % (Auto) 72.9, Lymph % (Auto) 15.3, [place] % (Auto) 8.5, Eos % (Auto) 2.5, Baso % (Auto) 0.9, Neut # (Auto) 5.6, Lymph # (Auto) 1.2, [place] # (Auto) 0.7, Eos # (Auto) 0.2, Baso # (Auto) 0.1, Sodium 136, Potassium 3.8, Chloride 96 L, Carbon Dioxide 29, Anion Gap 14.8, BUN 24 H, Creatinine 1.30 H, Estimated Creat Clear 48, Estimated GFR 53 L, Est GFR ( Amer) 64, Glucose 110 H, Calcium 10.1, Total Bilirubin 0.8, AST 31, ALT 23, Alkaline Phosphatase 89, Troponin I < 0.01, NT-Pro-B Natriuret Pep 298, Total Protein 7.0, Albumin 4.1, Globulin 2.9, Albumin/Globulin Ratio 1.4 01/01/24 14:00 01/01/24 14:00 Orders (Tests/Meds): ED MEDICATIONS Discontinued Medications Generic Name Dose Route Start Last Admin Trade Name Freq PRN Reason Stop Dose Admin Lactated Ringer's 1,000 mls @ 999 mls/hr 01/01/24 14:30 01/01/24 14:45 Lactated Ringer's 1000 Ml Bag IV 01/01/24 15:30 999 mls/hr .Q1H1M SAMANTHA Administration Iopamidol 70 ml 01/01/24 15:10 01/01/24 15:12 Iopamidol-370 (76%);100ml Bottle IV 01/01/24 15:11 70 ml ONCE ONE Administration Ondansetron HCl 4 mg 01/01/24 14:24 01/01/24 14:45 Ondansetron 4mg/2ml Vial IV 01/01/24 14:25 4 mg ONCE ONE Administration Sodium Chloride 10 ml 01/01/24 15:10 01/01/24 15:12 Sodium Chloride 0.9% 10ml Syr (Rad Only) IV 01/01/24 15:11 10 ml ONCE ONE Administration Sodium Chloride 50 ml 01/01/24 15:10 0.9 % Sodium Chloride 50 Ml Vial IV 01/01/24 15:11 ONCE ONE Sodium Chloride 50 ml 01/01/24 15:11 01/01/24 15:12 0.9 % Sodium Chloride 50 Ml Vial IV 01/01/24 15:12 40 ml ONCE ONE Administration ORDERS Category Date Time Status CT angio chest PE protocol Stat Cat Scan 01/01/24 14:24 Completed BNP [NT Pro Brain Natriuretic Pep.] Stat Lab 01/01/24 14:00 Completed CBC w/Auto Diff [Complete Blood Count Auto Diff] Stat Lab 01/01/24 14:00 Completed CMP [Comprehensive Metabolic Panel] Stat Lab 01/01/24 14:00 Completed Trop I [Troponin I] Stat Lab 01/01/24 14:00 Completed Troponin I Q3H Lab 01/01/24 20:30 Ordered Medical Decision Narrative: Patient is an 83-year-old male presenting today with decreased p.o. secretions shortness of breath fatigue after recent radiation treatment associated with esophageal cancer. 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 Differential includes recurrence of cancer, esophageal inflammation secondary to radiation therapy, pulmonary embolism, heart failure, ACS etc. Will get a CT scan of the patient's chest for further evaluation to rule out any emergent medical condition. I suspect most likely that this is radiation-induced esophagitis and the patient is significant symptomatic from decreased p.o. intake. Patient will definitely need nutritional support IV fluids. Will check his electrolytes and replace as needed. Patient may need to be transferred if he needs a higher level of care multidisciplinary team depending on the findings. Care will be transitioned to Dr. Quinn Boudreaux at 3 PM for further evaluation and management. <Sunny Boudreaux MD - Last Filed: 01/01/24 19:40> Vital Signs: 01/01/24 14:04 01/01/24 14:30 01/01/24 15:00 Temperature 98.0 F Temperature Source Oral Pulse Rate 80 71 Pulse Rate [Right Radial] 81 Respiratory Rate 20 21 30 H Blood Pressure 132/86 132/81 Blood Pressure [Right Arm] 145/82 H Blood Pressure Mean [Right Arm] 103 02 Sat by Pulse Oximetry 98 93 L 96 Oxygen Delivery Method Nasal Cannula Room Air Oxygen Flow Rate (LPM) 2 01/01/24 15:31 01/01/24 16:00 01/01/24 16:30 Temperature Temperature Source Pulse Rate 96 H 85 89 Pulse Rate [Right Radial] Respiratory Rate 26 H 19 30 H Blood Pressure 112/77 129/72 Blood Pressure [Right Arm] Blood Pressure Mean [Right Arm] 02 Sat by Pulse Oximetry 96 96 99 Oxygen Delivery Method Nasal Cannula Nasal Cannula Nasal Cannula Oxygen Flow Rate (LPM) 3 3 3 01/01/24 17:00 01/01/24 17:30 01/01/24 18:00 Temperature Temperature Source Pulse Rate 89 124 H 91 H Pulse Rate [Right Radial] Respiratory Rate 24 25 H 25 H Blood Pressure 110/62 122/73 136/82 Blood Pressure [Right Arm] Blood Pressure Mean [Right Arm] 02 Sat by Pulse Oximetry 100 97 98 Oxygen Delivery Method Nasal Cannula Room Air Room Air Oxygen Flow Rate (LPM) 3 01/01/24 18:30 01/01/24 19:00 Temperature Temperature Source Pulse Rate 85 83 Pulse Rate [Right Radial] Respiratory Rate 15 17 Blood Pressure 122/67 113/62 Blood Pressure [Right Arm] Blood Pressure Mean [Right Arm] 02 Sat by Pulse Oximetry 93 L 90 L Oxygen Delivery Method Room Air Room Air Oxygen Flow Rate (LPM) Lab Data Lab Results 01/01/24 14:00: WBC 7.7, RBC 4.46 L, Hgb 14.3, Hct 40.8 L, MCV 91.6, MCH 32.1 H, MCHC 35.1, RDW 14.3, Plt Count 305, MPV 7.6, Neut % (Auto) 72.9, Lymph % (Auto) 15.3, [place] % (Auto) 8.5, Eos % (Auto) 2.5, Baso % (Auto) 0.9, Neut # (Auto) 5.6, Lymph # (Auto) 1.2, [place] # (Auto) 0.7, Eos # (Auto) 0.2, Baso # (Auto) 0.1, Sodium 136, Potassium 3.8, Chloride 96 L, Carbon Dioxide 29, Anion Gap 14.8, BUN 24 H, Creatinine 1.30 H, Estimated Creat Clear 48, Estimated GFR 53 L, Est GFR ( Amer) 64, Glucose 110 H, Calcium 10.1, Total Bilirubin 0.8, AST 31, ALT 23, Alkaline Phosphatase 89, Troponin I < 0.01, NT-Pro-B Natriuret Pep 298, Total Protein 7.0, Albumin 4.1, Globulin 2.9, Albumin/Globulin Ratio 1.4 Orders (Tests/Meds): ED MEDICATIONS Discontinued Medications Generic Name Dose Route Start Last Admin Trade Name Freq PRN Reason Stop Dose Admin Lactated Ringer's 1,000 mls @ 999 mls/hr 01/01/24 14:30 01/01/24 14:45 Lactated Ringer's 1000 Ml Bag IV 01/01/24 15:30 999 mls/hr .Q1H1M SAMANTHA Administration Iopamidol 70 ml 01/01/24 15:10 01/01/24 15:12 Iopamidol-370 (76%);100ml Bottle IV 01/01/24 15:11 70 ml ONCE ONE Administration Ondansetron HCl 4 mg 01/01/24 14:24 01/01/24 14:45 Ondansetron 4mg/2ml Vial IV 01/01/24 14:25 4 mg ONCE ONE Administration Sodium Chloride 10 ml 01/01/24 15:10 01/01/24 15:12 Sodium Chloride 0.9% 10ml Syr (Rad Only) IV 01/01/24 15:11 10 ml ONCE ONE Administration Sodium Chloride 50 ml 01/01/24 15:10 0.9 % Sodium Chloride 50 Ml Vial IV 01/01/24 15:11 ONCE ONE Sodium Chloride 50 ml 01/01/24 15:11 01/01/24 15:12 0.9 % Sodium Chloride 50 Ml Vial IV 01/01/24 15:12 40 ml ONCE ONE Administration ORDERS Category Date Time Status CT angio chest PE protocol Stat Cat Scan 01/01/24 14:24 Completed BNP [NT Pro Brain Natriuretic Pep.] Stat Lab 01/01/24 14:00 Completed CBC w/Auto Diff [Complete Blood Count Auto Diff] Stat Lab 01/01/24 14:00 Completed CMP [Comprehensive Metabolic Panel] Stat Lab 01/01/24 14:00 Completed Trop I [Troponin I] Stat Lab 01/01/24 14:00 Completed Troponin I Q3H Lab 01/01/24 20:30 Ordered Medical Decision Narrative: Patient is an 83-year-old male presenting today with decreased p.o. secretions shortness of breath fatigue after recent radiation treatment associated with esophageal cancer. 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 Differential includes recurrence of cancer, esophageal inflammation secondary to radiation therapy, pulmonary embolism, heart failure, ACS etc. Will get a CT scan of the patient's chest for further evaluation to rule out any emergent medical condition. I suspect most likely that this is radiation-induced esophagitis and the patient is significant symptomatic from decreased p.o. intake. Patient will definitely need nutritional support IV fluids. Will check his electrolytes and replace as needed. Patient may need to be transferred if he needs a higher level of care multidisciplinary team depending on the findings. Care will be transitioned to Dr. Quinn Boudreaux at 3 PM for further evaluation and management. Sunny Boudreaux upon assumption of care patient was hemodynamically stable. Workup reviewed by me, hematologic labs are nonactionable, stable CKD, no HAMIDA or critical electrolyte abnormalities, initial troponin undetectably low. 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 Given that patient is unable to swallow in the setting of recent radiation for 5-week course that ended 2 weeks ago differential diagnosis includes esophagitis versus stenosis. Regardless patient is unable to tolerate p.o. intake and will require inpatient management. Patient has a history of COPD and was on 3 L nasal cannula my assumption of care was saturating 100%, I took patient off of his oxygen as his resting oxygen requirement should be greater than 88 and he tolerated this well. His hoarseness and phonation are at baseline although he does have significant difficulty. The case was discussed with [facility] and patient was placed on a wait list. Given that patient received all his care at [facility] this is the appropriate facility for him. Given that patient cannot tolerate p.o. he will require inpatient management and as a bridge to the case was discussed with hospital medicine who admit patient to their service pending transfer for continued evaluation at this time. Critical Care <Mike Vaca MD - Last Filed: 01/01/24 14:42> Critical Care Time Critical Care Time: No
[2024-01-01 14:39] LABS: Basophils # 0.1 K/mm3 (0-0.2); Basophils % 0.9 % (0.1-2.0); Eosinophils # 0.2 K/mm3 (0.0-0.4); Eosinophils % 2.5 % (0.1-12.0); Hematocrit 40.8 % (42.0-52.0); Hemoglobin 14.3 g/dL (14.1-18.0); Lymphocytes # 1.2 K/mm3 (0.7-4.5); Lymphocytes % 15.3 % (10-50); Mean Corpuscular HGB Conc 35.1 g/dL (31.8-35.4); Mean Corpuscular Hemoglobin 32.1 pg (27.0-31.2); Mean Corpuscular Volume 91.6 fl (80-94); Mean Platelet Volume 7.6 fl (7.4-10.4); Monocytes # 0.7 K/mm3 (0.1-1.0); Monocytes % 8.5 % (1.7-9.3); Neutrophils # 5.6 K/mm3 (1.8-7.8); Neutrophils % 72.9 % (37.0-80.0); Platelet Count 305 K/mm3 (142-424); Red Blood Count 4.46 M/mm3 (4.60-6.20); Red Cell Distribution Width 14.3 % (11.5-17.5); White Blood Count 7.7 K/mm3 (4.8-10.8)
[2024-01-01 14:40] LABS: Chloride 96 mmol/L (98-107); Potassium 3.8 mmoL/L (3.5-5.1); Sodium 136 mmol/L (136-145)
[2024-01-01 14:42] LABS: Alanine Aminotransferase 23 U/L (12-78); Aspartate Amino Transferase 31 U/L (17-59); Blood Urea Nitrogen 24 mg/dl (9-20); Creatinine Clearance Estimated 48 mL/min (50-200); Estimated Glomerular Filt Rate 53 ml/min (>60); GFR (African American) 64 ML/MIN (>60)
[2024-01-01 14:43] LABS: Albumin Level 4.1 g/dl (3.5-5.0); Albumin/Globulin Ratio 1.4 (1.1-1.8); Alkaline Phosphatase 89 U/L (38-126); Anion Gap 14.8 mEq/L (5-15); Bilirubin,Total 0.8 mg/dl (0.2-1.3); Carbon Dioxide 29 mmol/L (22.0-30.0); Globulin 2.9 g/dL (1.3-3.2)
[2024-01-01 14:44] LABS: Calcium 10.1 mg/dl (8.4-10.2); Glucose 110 mg/dl (74-100)
[2024-01-01] MEDS: ONDANSETRON 4MG/2ML VIAL 4 MG IV (14:45)
[2024-01-01] MEDS: LACTATED RINGERS 1000ML 1,000 ML 999 ML IV (14:45)
[2024-01-01 14:53] LABS: NT Pro Brain Natriuretic Pep. 298 pg/mL (0-450)
[2024-01-01 14:56] LABS: Troponin I < 0.01 ng/ml (0.00-0.034)
[2024-01-01] MEDS: 0.9 % SODIUM CHLORIDE 50 ML VIAL IV (15:12)
[2024-01-01] MEDS: IOPAMIDOL-370 (76%);100ML BOTTLE 70 ML IV (15:12)
[2024-01-01] MEDS: SODIUM CHLORIDE 0.9% 10ML SYR (RAD ONLY) 10 ML IV (15:12)
--- NOTE | 2024-01-01 17:24 | PC.NURSE ---
DR GREENBERG SPEAKING WITH POULTRY DRESSER, ADRIENNE AT [facility] AT THIS TIME
--- NOTE | 2024-01-01 17:25 | PC.NURSE ---
ADRIENNE ADVISED US TO GIVE HER TIME TO INVESTIGATE AND SHE WOULD CALL US RIGHT BACK
--- NOTE | 2024-01-01 18:31 | PC.NURSE ---
PT PLACED ON WAITLIST FOR PSYCHIATRIC. NO BEDS AVAILABLE AT THIS TIME
--- NOTE | 2024-01-01 18:41 | PC.NURSE ---
attempted to call son per pt request to notify him that pt is being admitted to the hospital, no answer at this time
--- NOTE | 2024-01-01 18:43 | PC.NURSE ---
updated Rito pt son that pt is being admitted to the hospital
--- NOTE | 2024-01-01 19:40 | PC.NURSE ---
was advised to wait on admit despite status change due to receiving nurse getting multiple admits
--- NOTE | 2024-01-01 20:29 | P.HP_ITS ---
History of Present Illness *Admission Date: 01/01/24 *Reason for visit:: Difficulty swallowing *History of present illness: This is a 83-year-old male with a history of esophageal cancer who recently finished radiation treatment 2 weeks ago presenting today with difficulty to swallow solid food associated with nausea and vomit. He has been unable to swallow solid foods several weeks ago was on some steroids with some improvement now is having difficult time keeping any of his secretions down has had significant poor intake has been unable to take his other medications and presents with shortness of breath increasing fatigue and decreased p.o. intake as stated above. No fevers or chills or cough. Admitted for further managament. [facility] Disclaimer: The information contained in this section may have been updated after the patient was seen, as this information can be updated by other users. Medical History BPH (benign prostatic hyperplasia) Dysphonia Encounter for pre-operative cardiovascular clearance Hoarseness Hypertension Impacted cerumen of right ear Mediastinal lymphadenopathy Multiple lung nodules on CT Pulmonary emphysema Stopped smoking with greater than 30 pack year history Vocal cord edema Vocal cord mass Surgical History Hx of neck surgery Previous back surgery Family History Other Hx of CABG Social History Smoking Status: Never smoker alcohol intake: never current occupational status: other Travel in the last 8 weeks: None current occupational exposures/hazards: No Review of Systems Review of Systems Review of systems:: pertinent systems reviewed and negative unless documented below Meds Home Medications and Allergies Home Medications Medication Instructions Recorded Confirmed Type atorvastatin 40 mg tablet 40 mg PO HS Cholesterol 08/23/22 01/02/24 History magnesium oxide 400 mg (241.3 mg 400 mg PO DAILY Supplement 08/23/22 01/02/24 History magnesium) tablet multivitamin (Daily Multi-Vitamin 1 tab PO DAILY Supplement 04/06/23 01/02/24 History tablet) aspirin 81 mg tablet,delayed 81 mg PO DAILY htn 04/07/23 01/02/24 History release finasteride 5 mg tablet 5 mg PO HS urination 04/07/23 01/02/24 History metoprolol succinate 25 mg 25 mg PO DAILY htn #90 tabs 06/06/23 01/02/24 Rx tablet,extended release 24 hr (Toprol XL) omeprazole 20 mg capsule,delayed 20 mg PO DAILY GERD 07/21/23 01/02/24 History release tamsulosin 0.4 mg capsule 0.8 mg PO HS prostate 07/21/23 01/02/24 History clopidogrel 75 mg tablet (Plavix) 75 mg PO DAILY stent #90 tabs 08/03/23 01/02/24 Rx amlodipine 10 mg tablet 10 mg PO DAILY htn 01/02/24 01/02/24 History ferrous sulfate 325 mg (65 mg 325 mg PO DAILY Supplement 01/02/24 01/02/24 History iron) capsule,extended release isosorbide mononitrate 30 mg 30 mg PO DAILY Hypertension 01/02/24 01/02/24 History tablet,extended release 24 hr New Prescriptions to Start Prescriptions: Allergies Allergy/AdvReac Type Severity Reaction Status Date / Time No Known Allergies Allergy Verified 10/17/23 10:53 Exam Data for Last 24 hours Vital signs and Labs for Last 24 Hours: Temp Pulse Resp BP Pulse Ox O2 Del Method O2 Flow Rate 98.0 F 83 17 113/62 90 L Room Air 3 01/01/24 14:04 01/01/24 19:00 01/01/24 19:00 01/01/24 19:00 01/01/24 19:00 01/01/24 19:00 01/01/24 17:00 Laboratory Results - last 24 hr 01/01/24 14:00: WBC 7.7, RBC 4.46 L, Hgb 14.3, Hct 40.8 L, MCV 91.6, MCH 32.1 H, MCHC 35.1, RDW 14.3, Plt Count 305, MPV 7.6, Neut % (Auto) 72.9, Lymph % (Auto) 15.3, [place] % (Auto) 8.5, Eos % (Auto) 2.5, Baso % (Auto) 0.9, Neut # (Auto) 5.6, Lymph # (Auto) 1.2, [place] # (Auto) 0.7, Eos # (Auto) 0.2, Baso # (Auto) 0.1, Sodium 136, Potassium 3.8, Chloride 96 L, Carbon Dioxide 29, Anion Gap 14.8, BUN 24 H, Creatinine 1.30 H, Estimated Creat Clear 48, Estimated GFR 53 L, Est GFR ( Amer) 64, Glucose 110 H, Calcium 10.1, Total Bilirubin 0.8, AST 31, ALT 23, Alkaline Phosphatase 89, Troponin I < 0.01, NT-Pro-B Natriuret Pep 298, Total Protein 7.0, Albumin 4.1, Globulin 2.9, Albumin/Globulin Ratio 1.4 Temp Pulse Resp BP Pulse Ox 98.5 F 90 20 96/56 L 95 07/30/22 14:59 07/30/22 18:10 07/30/22 18:10 07/30/22 18:10 07/30/22 18:10 Laboratory Results - last 24 hr 07/30/22 15:07: WBC 6.7, RBC 3.99 L, Hgb 12.5 L, Hct 37.8 L, MCV 94.6 H, MCH 31.2, MCHC 33.0, RDW 14.0, Plt Count 205, MPV 7.6, Neut % (Auto) 95.7 H, Lymph % (Auto) 2.2 L, [place] % (Auto) 1.4 L, Eos % (Auto) 0.1, Baso % (Auto) 0.6, Neut # (Auto) 6.4, Lymph # (Auto) 0.2 L, [place] # (Auto) 0.1, Eos # (Auto) 0.0, Baso # (Auto) 0.0, Total Counted 100, Neutrophils % (Manual) 90 H, Band Neutrophils % 1.0, Lymphocytes % (Manual) 8 L, Monocytes % (Manual) 1 L, Platelet Estimate Normal, RBC Morphology Normal 07/30/22 15:07: D-Dimer 2.63 H 07/30/22 15:07: Sodium 136, Potassium 3.8, Chloride 103, Carbon Dioxide 25, Anion Gap 11.8, BUN 21 H, Creatinine 1.30 H, Estimated Creat Clear 50, Estimated GFR 53 L, Est GFR ( Amer) 64, Glucose 132 H, Calcium 9.3, Total Bilirubin 2.2 H, AST 56, ALT 42, Alkaline Phosphatase 100, Troponin I 0.61 H, NT-Pro-B Natriuret Pep 1750 H, Total Protein 6.9, Albumin 3.8, Globulin 3.1, Albumin/Globulin Ratio 1.2 07/30/22 15:07: Lactate 1.9 07/30/22 15:07: SARS-CoV-2 (PCR) Not detected, Influenza A Untype (PCR) Not detected, Influenza Type B (PCR) Not detected 07/30/22 15:48: Urine Color Dk yellow, Urine Appearance Turbid, Urine pH 7.5, Ur Specific [place] 1.015, Urine Protein 2+, Urine Glucose (UA) Negative, Urine Ketones 1+, Urine Blood 2+, Urine Nitrate Positive, Urine Bilirubin 1+ A, Urine Urobilinogen 0.2, Ur Leukocyte Esterase 3+ A, Urine RBC 5-10, Urine WBC 20-50, Ur Squamous Epith Cells Occasional, Urine Bacteria 3+ I & O for Last 24 hours: Intake & Output 12/29/23 12/30/23 12/31/23 01/01/24 23:59 23:59 23:59 23:59 Weight 77.111 kg Intake & Output 07/27/22 07/28/22 07/29/22 07/30/22 23:59 23:59 23:59 23:59 Weight 79.379 kg Constitutional Constitutional: no acute distress *Routine HEENT Exam Head: Present normocephalic Eye: Present EOMI ENT: Present mucous membranes dry *Routine Neck Exam Neck: Present full ROM *Routine Respiratory Exam Respiratory: Present CTA bilaterally *Routine Cardiovascular Exam Cardiovascular: Present RRR, Normal S1 and Normal S2 *Routine Abdominal Exam Abdominal: Present soft and normoactive bowel sounds *Routine Rectal Exam Rectal:: deferred *Routine Genitalia Exam Genitalia:: deferred Routine Psychiatric Exam Psychiatric: Present normal affect H&P: Result Imaging and Cardiology EKG: Status: image reviewed by me, Preliminary report and final report Chest x-ray: Status: image reviewed by me, Preliminary report and final report CT scan - chest: Status: image reviewed by me, Preliminary report and final report Assessment and Plan *Assessment and plan (1) Dysphagia: Status: Acute Qualifiers: Dysphagia type: esophageal phase Qualified Code(s): R13.19 - Other dysphagia Category: Medical Code(s): R13.10 - Dysphagia, unspecified (2) Radiation adverse effect: Status: Acute Qualifiers: Encounter type: initial encounter Qualified Code(s): T66.XXXA - Radiation sickness, unspecified, initial encounter Category: Medical Code(s): T66.XXXA - Radiation sickness, unspecified, initial encounter (3) Decreased oral intake: Status: Acute Category: Medical Code(s): R63.8 - Other symptoms and signs concerning food and fluid intake (4) Acute dehydration: Status: Acute Category: Medical Code(s): E86.0 - Dehydration (5) Fatigue: Status: Acute Qualifiers: Fatigue type: due to neoplasm Qualified Code(s): R53.0 - Neoplastic (malignant) related fatigue Category: Medical Code(s): R53.83 - Other fatigue (6) Vocal cord mass: Status: Acute Category: Medical Code(s): J38.3 - Other diseases of vocal cords (7) Hoarseness: Status: Acute Category: Medical Code(s): R49.0 - Dysphonia Plan 83-year-old male with a history of esophageal cancer who recently finished radia tion treatment 2 weeks ago presenting today with difficulty to swallow solid food associated with nausea and vomit. He presented today with decreased p.o. secretions shortness of breath fatigue after recent radiation treatment associated with esophageal cancer. 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 initial work up are unremarkable. CT of chest negative. Given that patient is unable to swallow in the setting of recent radiation for 5-week course that ended 2 weeks ago differential diagnosis includes esophagitis versus stenosis. ED attempted to transfer patient to [place], where patient is well known and id currently receiving treatment. Unfortunately, bed are not available at this time. ED requested admission for waiting list transfer. Agreed to proceed. Plan as follow: -Dysphagia to solid food, likely secondary to radiation: Esophagitis versus a stenosis: Decreased p.o. intake and acute dehydration History of esophageal cancer vocal cord coles Fatigue and hoarseness Admit patient for continuous monitoring Started on IV maintenance Advance diet as tolerated to clear liquid Zofran for vomiting management Supportive care Due to the lack of services patient has been placed on weight admissions for transfer to [place]. Discussion all treatments include endoscopic with esophageal dilation, patient has been on his therapy to help reduce inflammation. Repeat lab Resume home medication for other chronic conditions Including hypertension COPD hyperlipidemia BPH Patient on Plavix . Protonix twice daily IV. Full code
[2024-01-01 21:53] LABS: Troponin I < 0.01 ng/ml (0.00-0.034)
--- NOTE | 2024-01-01 21:54 | PC.NURSE ---
Called report to Kiesha PAIZ on 2nd floor
[2024-01-01] MEDS: 0.9 % SODIUM CHLORIDE 1000ML 1,000 ML 75 ML IV (22:45)
[2024-01-01] MEDS: SODIUM CHLORIDE 0.9% 10ML VIAL 10 ML IV (22:45)
[2024-01-01] MEDS: PANTOPRAZOLE 40MG VIAL 40 MG IV (22:46)
[2024-01-02] VITALS: BP 129/62; PULSE 86; RESP 20; TEMP 36.6; O2SAT 92
[2024-01-02] MEDS: MORPHINE 2MG/ML SYRINGE 2 MG IV (01:33)
[2024-01-02 04:00] VITALS: BP 122/72; PULSE 66; RESP 18; TEMP 36.9; O2SAT 95; BMI 25.7
--- NOTE | 2024-01-02 04:34 | PC.NURSE ---
The patient has had a rough shift. Patient has been able to sleep off and on but not for very long. the patient continues to slobber but is tolerating Ice intake well. Did advance diet to see if he could tolerate clears. Patient pain was finally able to be controlled with morphine and the patient was able to rest more then. No other issues this shift
[2024-01-02 07:28] LABS: Basophils # 0.1 K/mm3 (0-0.2); Basophils % 1.3 % (0.1-2.0); Eosinophils # 0.2 K/mm3 (0.0-0.4); Eosinophils % 4.3 % (0.1-12.0); Hematocrit 39.1 % (42.0-52.0); Hemoglobin 13.1 g/dL (14.1-18.0); Lymphocytes # 0.9 K/mm3 (0.7-4.5); Lymphocytes % 18.2 % (10-50); Mean Corpuscular HGB Conc 33.5 g/dL (31.8-35.4); Mean Corpuscular Hemoglobin 31.4 pg (27.0-31.2); Mean Corpuscular Volume 93.6 fl (80-94); Mean Platelet Volume 8.5 fl (7.4-10.4); Monocytes # 0.6 K/mm3 (0.1-1.0); Neutrophils # 3.3 K/mm3 (1.8-7.8); Neutrophils % 65.2 % (37.0-80.0); Platelet Count 253 K/mm3 (142-424); Red Blood Count 4.17 M/mm3 (4.60-6.20); Red Cell Distribution Width 13.9 % (11.5-17.5)
[2024-01-02 07:34] LABS: Alanine Aminotransferase 18 U/L (12-78); Albumin Level 3.4 g/dl (3.5-5.0); Albumin/Globulin Ratio 1.1 (1.1-1.8); Alkaline Phosphatase 76 U/L (38-126); Anion Gap 11.3 mEq/L (5-15); Aspartate Amino Transferase 29 U/L (17-59); Bilirubin,Total 0.9 mg/dl (0.2-1.3); Blood Urea Nitrogen 19 mg/dl (9-20); Calcium 9.1 mg/dl (8.4-10.2); Carbon Dioxide 32 mmol/L (22.0-30.0); Chloride 97 mmol/L (98-107); Creatinine Clearance Estimated 56 mL/min (50-200); Estimated Glomerular Filt Rate 64 ml/min (>60); GFR (African American) 78 ML/MIN (>60); Glucose 82 mg/dl (74-100); Magnesium 1.5 mg/dl (1.6-2.3); Potassium 3.3 mmoL/L (3.5-5.1); Sodium 137 mmol/L (136-145); Total Protein,Serum 6.4 g/dl (6.3-8.2)
[2024-01-02 08:00] VITALS: BP 125/67; PULSE 71; RESP 18; TEMP 36.4; O2SAT 95
--- NOTE | 2024-01-02 08:35 | HMH.PHAINT1 ---
Pharmacy Intervention Comments: MEDICATION RECONCILIATION COMPLETED ON PATIENT USING EXTERNAL FILL HISTORY FROM PHARMACY AND LIST FROM CARDIOLOGY OFFICE. -SLADE CROWELL, CAYLAD
[2024-01-02] MEDS: PANTOPRAZOLE 40MG VIAL 40 MG IV (08:47)
[2024-01-02 15:24] VITALS: BMI 25.7
[2024-01-02] MEDS: 0.9 % SODIUM CHLORIDE 1000ML 1,000 ML 75 ML IV (15:56)
[2024-01-02 16:00] VITALS: BP 151/72; PULSE 80; RESP 18; TEMP 36.6; O2SAT 94
--- NOTE | 2024-01-02 16:26 | P.PN_ITS ---
Subjective *Date: 01/02/24 *Time: 16:26 Interval history: patient is seen at bedside, he is alert awake , he is able to tolerated liquids, he is wondering when he can be transferred to [facility], he otherwise denied CP, SOB Exam Data for Last 24 hours Vital signs and Labs for Last 24 Hours: Temp Pulse Resp BP Pulse Ox O2 Del Method O2 Flow Rate 97.6 F 71 18 125/67 95 Room Air 2 01/02/24 08:00 01/02/24 08:00 01/02/24 08:00 01/02/24 08:00 01/02/24 08:00 01/02/24 15:00 01/01/24 22:19 Laboratory Results - last 24 hr 01/01/24 21:05: Troponin I < 0.01 01/02/24 05:48: WBC 5.0 D, RBC 4.17 L, Hgb 13.1 L, Hct 39.1 L, MCV 93.6, MCH 31.4 H, MCHC 33.5, RDW 13.9, Plt Count 253, MPV 8.5, Neut % (Auto) 65.2, Lymph % (Auto) 18.2, [place] % (Auto) 11.0 H, Eos % (Auto) 4.3, Baso % (Auto) 1.3, Neut # (Auto) 3.3, Lymph # (Auto) 0.9, [place] # (Auto) 0.6, Eos # (Auto) 0.2, Baso # (Auto) 0.1, Sodium 137, Potassium 3.3 L, Chloride 97 L, Carbon Dioxide 32 H, Anion Gap 11.3, BUN 19, Creatinine 1.10, Estimated Creat Clear 56, Estimated GFR 64, Est GFR ( Amer) 78 D, Glucose 82 D, Calcium 9.1, Magnesium 1.5 L, Total Bilirubin 0.9, AST 29, ALT 18, Alkaline Phosphatase 76, Total Protein 6.4, Albumin 3.4 L D, Globulin 3.0, Albumin/Globulin Ratio 1.1 I & O for Last 24 hours: Intake & Output 12/30/23 12/31/23 01/01/24 01/02/24 23:59 23:59 23:59 23:59 Intake Total 770 / 770 Output Total 500 / 500 Balance 270 / 270 Weight 77.111 kg 77.11 kg Constitutional Constitutional: no acute distress *Routine HEENT Exam Head: Present normocephalic Eye: Present EOMI and PERRL ENT: Present mucous membranes moist *Routine Neck Exam Neck: Present supple; Absent lymphadenopathy *Routine Respiratory Exam Respiratory: Present CTA bilaterally *Routine Cardiovascular Exam Cardiovascular: Present RRR *Routine Abdominal Exam Abdominal: Present soft and normoactive bowel sounds; Absent tenderness *Routine Extremities Exam Extremities: Absent cyanosis, clubbing or edema *Routine Skin Exam Skin: Present warm; Absent rash *Routine Neurological Exam Neurological: Present alert and oriented X3 Assessment and Plan *Assessment and plan (1) Dysphagia: Status: Acute Qualifiers: Dysphagia type: esophageal phase Qualified Code(s): R13.19 - Other dysphagia Category: Medical Code(s): R13.10 - Dysphagia, unspecified (2) Radiation adverse effect: Status: Acute Qualifiers: Encounter type: initial encounter Qualified Code(s): T66.XXXA - Radiation sickness, unspecified, initial encounter Category: Medical Code(s): T66.XXXA - Radiation sickness, unspecified, initial encounter (3) Decreased oral intake: Status: Acute Category: Medical Code(s): R63.8 - Other symptoms and signs concerning food and fluid intake (4) Acute dehydration: Status: Acute Category: Medical Code(s): E86.0 - Dehydration (5) Fatigue: Status: Acute Qualifiers: Fatigue type: due to neoplasm Qualified Code(s): R53.0 - Neoplastic (malignant) related fatigue Category: Medical Code(s): R53.83 - Other fatigue (6) Vocal cord mass: Status: Acute Category: Medical Code(s): J38.3 - Other diseases of vocal cords (7) Hoarseness: Status: Acute Category: Medical Code(s): R49.0 - Dysphonia Plan 83-year-old male with a history of esophageal cancer who recently finished radiation treatment 2 weeks ago presenting today with difficulty to swallow solid food associated with nausea and vomit. He presented today with decreased p.o. secretions shortness of breath fatigue after recent radiation treatment associated with esophageal cancer. 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 initial work up are unremarkable. CT of chest negative. Given that patient is unable to swallow in the setting of recent radiation for 5-week course that ended 2 weeks ago differential diagnosis includes esophagitis versus stenosis. ED attempted to transfer patient to [place], where patient is well known and id currently receiving treatment. Unfortunately, bed are not available at this time. ED requested admission for waiting list transfer. Agreed to proceed. Plan as follow: Dysphagia, likely secondary to radiation: Esophagitis versus a stenosis: Decreased p.o. intake and acute dehydration History of esophageal cancer vocal cord coles Fatigue and hoarseness Started on IV maintenance Zofran for vomiting management Supportive care Advance diet as tolerated, continue protonix transfer was initiated to patient oncology facility, patient is awaiting transfer to [facility] Resume home medication for other chronic conditions Including hypertension COPD hyperlipidemia BPH Patient on Plavix . Protonix twice daily IV. Full code
--- NOTE | 2024-01-02 18:02 | PC.NURSE ---
report called to Eddie at [facility]
--- NOTE | 2024-01-02 18:33 | P.DS_ITS ---
General Admission date:: 01/01/24 Discharge date: 01/02/24 HPI HPI HPI: This is a 83-year-old male with a history of esophageal cancer who recently finished radiation treatment 2 weeks ago presenting today with difficulty to swallow solid food associated with nausea and vomit. He has been unable to swallow solid foods several weeks ago was on some steroids with some improvement now is having difficult time keeping any of his secretions down has had significant poor intake has been unable to take his other medications and presents with shortness of breath increasing fatigue and decreased p.o. intake as stated above. No fevers or chills or cough. Admitted for further managament. Hospital Course Hospital Course Hospital Course: 83-year-old male with a history of esophageal cancer who recently finished radiation treatment 2 weeks ago presenting today with difficulty to swallow solid food associated with nausea and vomit. He presented today with decreased p.o. secretions shortness of breath fatigue after recent radiation treatment associated with esophageal cancer. 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 initial work up are unremarkable. CT of chest negative. Given that patient is unable to swallow in the setting of recent radiation for 5-week course that ended 2 weeks ago differential diagnosis includes esophagitis versus stenosis. ED attempted to transfer patient to [place], where patient is well known and id currently receiving treatment. Unfortunately, bed are not available at this time. ED requested admission for waiting list transfer. Agreed to proceed. Dysphagia, likely secondary to radiation: Esophagitis versus a stenosis: Decreased p.o. intake and acute dehydration History of esophageal cancer vocal cord coles Fatigue and hoarseness patient oncology requested transfer, patient agreed with the transfer and will be transferred in stable condition Exam Data for Last 24 hours Vital signs and Labs for Last 24 Hours: Temp Pulse Resp BP Pulse Ox O2 Del Method O2 Flow Rate 97.9 F 80 18 151/72 H 94 L Room Air 2 01/02/24 16:00 01/02/24 16:00 01/02/24 16:00 01/02/24 16:00 01/02/24 16:00 01/02/24 17:00 01/01/24 22:19 Laboratory Results - last 24 hr 01/01/24 21:05: Troponin I < 0.01 01/02/24 05:48: WBC 5.0 D, RBC 4.17 L, Hgb 13.1 L, Hct 39.1 L, MCV 93.6, MCH 31.4 H, MCHC 33.5, RDW 13.9, Plt Count 253, MPV 8.5, Neut % (Auto) 65.2, Lymph % (Auto) 18.2, [place] % (Auto) 11.0 H, Eos % (Auto) 4.3, Baso % (Auto) 1.3, Neut # (Auto) 3.3, Lymph # (Auto) 0.9, [place] # (Auto) 0.6, Eos # (Auto) 0.2, Baso # (Auto) 0.1, Sodium 137, Potassium 3.3 L, Chloride 97 L, Carbon Dioxide 32 H, Anion Gap 11.3, BUN 19, Creatinine 1.10, Estimated Creat Clear 56, Estimated GFR 64, Est GFR ( Amer) 78 D, Glucose 82 D, Calcium 9.1, Magnesium 1.5 L, Total Bilirubin 0.9, AST 29, ALT 18, Alkaline Phosphatase 76, Total Protein 6.4, Albumin 3.4 L D, Globulin 3.0, Albumin/Globulin Ratio 1.1 I & O for Last 24 hours: Intake & Output 12/30/23 12/31/23 01/01/24 01/02/24 23:59 23:59 23:59 23:59 Intake Total 770 / 770 Output Total 500 / 500 Balance 270 / 270 Weight 77.111 kg 77.11 kg Constitutional Constitutional: no acute distress *Routine HEENT Exam Head: Present normocephalic Eye: Present EOMI and PERRL ENT: Present mucous membranes moist *Routine Neck Exam Neck: Present supple; Absent lymphadenopathy *Routine Respiratory Exam Respiratory: Present CTA bilaterally *Routine Cardiovascular Exam Cardiovascular: Present RRR *Routine Abdominal Exam Abdominal: Present soft and normoactive bowel sounds; Absent tenderness *Routine Extremities Exam Extremities: Absent cyanosis, clubbing or edema *Routine Skin Exam Skin: Present warm; Absent rash *Routine Neurological Exam Neurological: Present alert and oriented X3 Results Data Completed and Pending Labs on day of discharge: Labs from last 24 hours 01/02/24 01/01/24 05:48 21:05 WBC 5.0 D RBC 4.17 L Hgb 13.1 L Hct 39.1 L MCV 93.6 MCH 31.4 H MCHC 33.5 RDW 13.9 Plt Count 253 MPV 8.5 Neut % (Auto) 65.2 Lymph % (Auto) 18.2 [place] % (Auto) 11.0 H Eos % (Auto) 4.3 Baso % (Auto) 1.3 Neut # (Auto) 3.3 Lymph # (Auto) 0.9 [place] # (Auto) 0.6 Eos # (Auto) 0.2 Baso # (Auto) 0.1 Sodium 137 Potassium 3.3 L Chloride 97 L Carbon Dioxide 32 H Anion Gap 11.3 BUN 19 Creatinine 1.10 Estimated Creat Clear 56 Estimated GFR 64 Est GFR ( Amer) 78 D Glucose 82 D Calcium 9.1 Magnesium 1.5 L Total Bilirubin 0.9 AST 29 ALT 18 Alkaline Phosphatase 76 Troponin I < 0.01 Total Protein 6.4 Albumin 3.4 L D Globulin 3.0 Albumin/Globulin Ratio 1.1 DS: Diagnosis Discharge Diagnosis (1) Dysphagia: Status: Acute Code(s): R13.10 - Dysphagia, unspecified Qualifiers: Dysphagia type: esophageal phase Qualified Code(s): R13.19 - Other dysphagia (2) Radiation adverse effect: Status: Acute Code(s): T66.XXXA - Radiation sickness, unspecified, initial encounter Qualifiers: Encounter type: initial encounter Qualified Code(s): T66.XXXA - Radiation sickness, unspecified, initial encounter (3) Decreased oral intake: Status: Acute Code(s): R63.8 - Other symptoms and signs concerning food and fluid intake (4) Acute dehydration: Status: Acute Code(s): E86.0 - Dehydration (5) Fatigue: Status: Acute Code(s): R53.83 - Other fatigue Qualifiers: Fatigue type: due to neoplasm Qualified Code(s): R53.0 - Neoplastic (malignant) related fatigue (6) Vocal cord mass: Status: Acute Code(s): J38.3 - Other diseases of vocal cords (7) Hoarseness: Status: Acute Code(s): R49.0 - Dysphonia Meds Home Medications and Allergies Home Medications Medication Instructions Recorded Confirmed Type atorvastatin 40 mg tablet 40 mg PO HS 08/23/22 01/02/24 History magnesium oxide 400 mg (241.3 mg 400 mg PO DAILY 08/23/22 01/02/24 History magnesium) tablet multivitamin (Daily Multi-Vitamin 1 tab PO DAILY Supplement 04/06/23 01/02/24 History tablet) aspirin 81 mg tablet,delayed 81 mg PO DAILY 04/07/23 01/02/24 History release finasteride 5 mg tablet 5 mg PO HS 04/07/23 01/02/24 History omeprazole 20 mg capsule,delayed 20 mg PO DAILY 07/21/23 01/02/24 History release amlodipine 10 mg tablet 10 mg PO DAILY 01/02/24 01/02/24 History clopidogrel 75 mg tablet (Plavix) 75 mg PO DAILY 01/02/24 01/02/24 History ferrous sulfate 325 mg (65 mg 325 mg PO DAILY 01/02/24 01/02/24 History iron) tablet,delayed release isosorbide mononitrate 30 mg 30 mg PO DAILY 01/02/24 01/02/24 History tablet,extended release 24 hr metoprolol succinate 25 mg 25 mg PO DAILY 01/02/24 01/02/24 History tablet,extended release 24 hr (Toprol XL) oxycodone 10 mg tablet 10 mg PO Q3HP PRN Moderate Pain 01/02/24 01/02/24 History (Scale Score 5-6) New Prescriptions to Start Prescriptions: Allergies Allergy/AdvReac Type Severity Reaction Status Date / Time No Known Allergies Allergy Verified 10/17/23 10:53 Discharge Plan Disposition Patient Disposition: [facility] Swing Bed Condition: Good Discharge Order Discharge Orders: Discharge Order (Routine); Ordered 01/02/24 Ordered By: Cortney Nixon Follow up Plan Follow up with: Abhijeet Gerber MD [Primary Care Provider] - 1 week Prescriptions/Medication Reconciliation: Continued atorvastatin 40 mg tablet 40 mg PO HS magnesium oxide 400 mg (241.3 mg magnesium) tablet 400 mg PO DAILY multivitamin [Daily Multi-Vitamin] Tablet 1 tab PO DAILY omeprazole 20 mg capsule,delayed release(DR/EC) 20 mg PO DAILY aspirin 81 mg tablet,delayed release (DR/EC) 81 mg PO DAILY finasteride 5 mg tablet 5 mg PO HS isosorbide mononitrate 30 mg tablet extended release 24 hr 30 mg PO DAILY ferrous sulfate 325 mg (65 mg iron) tablet,delayed release (DR/EC) 325 mg PO DAILY Patient Comments: TAKE 1 TABLET BY MOUTH EVERY DAY WITH BREAKFAST oxycodone 10 mg tablet 10 mg PO Q3HP PRN (Reason: Moderate Pain (Scale Score 5-6)) Patient Comments: TAKE 1 TABLET BY MOUTH EVERY 3 HOURS NEEDED FOR CANCER PAIN (G89.3). clopidogrel [Plavix] 75 mg tablet 75 mg PO DAILY metoprolol succinate [Toprol XL] 25 mg tablet extended release 24 hr 25 mg PO DAILY amlodipine 10 mg tablet 10 mg PO DAILY Problem Reconciliation Problems Reviewed?: Yes Patient Discharge Instructions ACTIVITY: Ambulate as tolerated DIET: continue same diet Stand Alone Forms: Transfer Record Providers Primary Care Provider: Abhijeet Gerber Admit Provider: Cortney Nixon Attending Provider: Cortney Nixon
== END 2024-01-02 19:25 | disposition short-term general hospital (02) ==
LOC: ER 19:40 → ICU 19:46
PROVIDERS: Nurse Practitioner Family; Student in an Organized Health Care Education/Training Program; Admitting Provider Internal Medicine; Emergency Provider Emergency Medicine; PCP Family Medicine; Visit Provider Internal Medicine
DX: E86.0 Dehydration (principal); C15.9 Malignant neoplasm of esophagus, unspecified; T66.XXXA Radiation sickness, unspecified, initial encounter; K22.2 Esophageal obstruction; R53.0 Neoplastic (malignant) related fatigue; Y84.2 Radiological procedure and radiotherapy as the cause of abnormal reaction of the patient, or of later complication, without mention of misadventure at the time of the procedure; Z79.01 Long term (current) use of anticoagulants; I10 Essential (primary) hypertension; Z79.899 Other long term (current) drug therapy; K20.80 Other esophagitis without bleeding; R13.10 Dysphagia, unspecified; J43.9 Emphysema, unspecified; I25.10 Atherosclerotic heart disease of native coronary artery without angina pectoris; I65.21 Occlusion and stenosis of right carotid artery; E78.5 Hyperlipidemia, unspecified; N40.0 Benign prostatic hyperplasia without lower urinary tract symptoms; Z79.82 Long term (current) use of aspirin; R13.19 Other dysphagia
CPT/HCPCS: 36415; 71275; 80053; 83735; 83880; 84484; 85025; 96361; 96374; 96375; 96376; 99285; G0378; J2405; Q9967

== ENCOUNTER 2024-02-20 10:11 | Outpatient (CLI) | payer BC, SELFPAY ==
--- NOTE | 2024-02-20 10:11 | CA_ITS ---
FINAL REPORT TECHNIQUE: Color Doppler, duplex Doppler and goldberg scale sonography of the bilateral neck vasculature was performed. Velocities were measured in the carotid arteries. Stenosis evaluation based on velocity criteria. CLINICAL HISTORY: yecenia, HLD, ex smoker, CAD. COMPARISON: None FINDINGS: The peak systolic velocity of the right common carotid artery is 102 cm/sec and internal carotid artery 323 cm/sec. The diastolic velocity in the internal carotid artery is 85 cm/sec. The ICA/CCA ratio is 3.2. Visually, a moderate amount of plaque is seen. These findings are consistent with less than 70% stenosis. The external carotid artery is patent. The right vertebral artery is patent with antegrade flow. The peak systolic velocity of the left common carotid artery is 114 cm/sec and internal carotid artery 153 cm/sec. The diastolic velocity in the internal carotid artery is 45 cm/sec. The ICA/CCA ratio is 1.35. Visually, a moderate amount of plaque is seen. These findings are consistent with less than 50% stenosis. The external carotid artery is patent. The left vertebral artery is patent with antegrade flow. IMPRESSION: Significant stenosis is present in the right internal carotid artery, with less than 70% luminal diameter stenosis. Recommend CTA for further evaluation. Less than 50% stenosis in the left internal carotid artery. Bilateral patent vertebral arteries. Reviewed, Interpreted and Dictated by Guy Lozoya III, MD Transcribed by Sabine Cruz Authenticated and [facility]
== END 2024-02-20 23:59 | disposition home or self-care (01) ==
LOC: RT 10:11
PROVIDERS: PCP Family Medicine; Visit Provider Nurse Practitioner Family
DX: I65.23 Occlusion and stenosis of bilateral carotid arteries (principal)
CPT/HCPCS: 93880

== ENCOUNTER 2024-03-15 10:59 | Outpatient (CLI) | payer BC, SELFPAY ==
--- NOTE | 2024-03-15 10:59 | CA_ITS ---
APPROVED REPORT EXAM: Comprehensive 2D, Doppler, and color-flow Echocardiogram [employer] Analyst: Yari Lan, RCS, RVS Ht: 5 ft 9 in Wt: 174lbs BSA: 1.95 BP: 133/76 mmHg Indications: CA, CP, Dyspnea, HAMIDA, Anemia, NSTEMI 2D Dimensions IVSd 0.97 cm LVEF (Visual) 67.60 % PWd 1.04 cm LA Volume 94.90 mL LVDd 4.51 cm LA Volume Index 47.70 mL/m2 (M/F) 16-34 LVDs 2.82 cm EF AP4 58.00 % GL Strain -21.3 % M-Mode Dimensions LA Diam 4.71 cm (1.9-4.0) LVDd 4.33 cm (3.5-5.7) LVDs 3.04 cm (3.5-5.7) EF (Teich) 57.10% EPSs 0.69 cm FS 29.80% EDV (Teich) 84.40 mL TAPSE 2.30 (<1.7) ESV (Teich) 36.20 mL LV Diastology E Decel Time 247 (160-240 msec) E/A Ratio 1.02 MED A' 9.10 cm/s LAT A' 12.10 cm/s Aortic Valve MILAGROS Index 0.99 cm2/m2 AoV Peak Vincent. 183.0 (50-130 cm/s) AO Peak GR. 13.40 mmHg AO Mean GR. 6.70 (<5 mmHg) AO VTI 38.0 (18-25 cm) MILAGROS (VTI) 1.97 (2.5-4.5 cm2) Mitral Valve MV A Velocity 62.0 (40-130 cm/s) E/A Ratio 1.02 Tricuspid Valve TR P. Velocity 227.00 cm/s RAP Estimate 10.00 mmHg RVSP 30.70 mmHg Left Ventricle The left ventricle is normal size. The left ventricular systolic function is normal. The left ventricular ejection fraction is within the normal range. There is normal left ventricular wall thickness. There is normal LV segmental wall motion. The left ventricular diastolic function is normal. LVEF is 55%. Right Ventricle Right ventricle is mildly dilated. Right ventricle is mildly hypokinetic. Atria Left atrium is moderately dilated. Right atrium is moderately dilated. No Doppler evidence of interatrial shunt. Aortic Valve The aortic valve is mildly thickened. There is no aortic valvular stenosis. No aortic regurgitation is present. Mitral Valve The mitral valve is normal in structure. No evidence of mitral valve stenosis. There is no mitral valve regurgitation noted. Tricuspid Valve The tricuspid valve leaflets are thin and pliable. Mild tricuspid regurgitation. RVSP is 25-30 mmHg. Pulmonic Valve The pulmonary valve is normal in structure. Trace pulmonic regurgitation. Great Vessels The aortic root is normal in size. The ascending aorta is normal in size. IVC is normal in size and collapses >50% with inspiration. Pericardium There is no pericardial effusion. Other Information Study Quality: Fair Conclusion Normal LV systolic function. Mildly dilated RV with mild reduction in RV function. Mild TR. RVSP 25-30 mmHg. Electronically signed by : Addie Altamirano MD 03/15/2024 12:26:35
== END 2024-03-15 23:59 | disposition home or self-care (01) ==
LOC: RT 10:59
PROVIDERS: PCP Family Medicine; Visit Provider Internal Medicine
DX: I51.7 Cardiomegaly (principal); I34.0 Nonrheumatic mitral (valve) insufficiency
CPT/HCPCS: 93306

== ENCOUNTER 2024-05-03 10:57 | Outpatient (CLI) | payer BC, SELFPAY ==
[2024-05-03 12:01] LABS: Albumin Level 4.2 g/dl (3.5-5.0)
[2024-05-03 12:03] LABS: Bilirubin,Unconjugated 0.5 mg/dL (0.0-1.1)
[2024-05-03 12:04] LABS: Alanine Aminotransferase 34 U/L (12-78); Alkaline Phosphatase 119 U/L (38-126); Aspartate Amino Transferase 34 U/L (17-59); Bilirubin,Direct 0.2 mg/dl (0.0-0.4); Bilirubin,Indirect 0.5 mg/dL (0.0-0.9); Bilirubin,Total 0.7 mg/dl (0.2-1.3); Chol/HDL Ratio 3.4 (1-3.5); Cholesterol 161 mg/dl (140-200); HDL Cholesterol 47 mg/dl (40-60); Total Protein,Serum 7.2 g/dl (6.3-8.2); Triglycerides 154 mg/dl (30-150); VLDL Cholesterol 31 mg/dL (0-40)
[2024-05-03 12:16] LABS: Direct LDL Cholesterol 70.61 mg/dL (100-129)
== END 2024-05-03 23:59 | disposition home or self-care (01) ==
LOC: LAB 11:00
PROVIDERS: PCP Family Medicine; Visit Provider Internal Medicine
DX: E78.5 Hyperlipidemia, unspecified (principal); I10 Essential (primary) hypertension
CPT/HCPCS: 36415; 80061; 80076

== ENCOUNTER 2024-06-15 15:01 | Outpatient (CLI) | payer BC, SELFPAY ==
--- NOTE | 2024-06-15 15:03 | CT_ITS ---
PROCEDURE INFORMATION: Exam: CT Chest Without Contrast; Diagnostic Exam date and time: 06/15/2024 3:15 PM Age: 84 years old Clinical indication: Abnormal findings; Lung mass or nodule; Not specified; Additional info: Nodule and adenopathy TECHNIQUE: Imaging protocol: Diagnostic computed tomography of the chest without contrast. Radiation optimization: All CT scans at this facility use at least one of these dose optimization techniques: automated exposure control; mA and/or kV adjustment per patient size (includes targeted exams where dose is matched to clinical indication); or iterative reconstruction. COMPARISON: CT ANGIO CHEST PE PROTOCOL 01/01/2024 3:12 PM FINDINGS: Thyroid: The visualized thyroid gland is normal. Lungs: No focal areas of consolidation. Mild centrilobular emphysematous changes are stable. Scattered minor subpleural reticulation and peripheral interlobular septal thickening suggest interstitial fibrosis, unchanged. Previously described nodule in the posterior right upper lobe is stable dating back to 12/20/2022, best seen on series 8, image 101. This currently measures approximately 7.9 mm. There is a small subpleural nodule in the left upper lobe seen on series 3, image 79 measures approximately 2 mm. Another subpleural nodule in the left upper lobe seen on series 3, image 57 measures maximally 2.3 cm, stable. There are a few punctate pulmonary parenchymal calcifications, consistent with remote granulomatous organism exposure. Pleural spaces: There are no pleural effusions. No pneumothorax. Heart: The heart is borderline enlarged. There is no evidence of pericardial fluid collections. Coronary arteries: There is severe atherosclerotic calcification of the coronary arteries. Lymph nodes: There is no evidence of pathologic adenopathy. A right paratracheal lymph node measures 9 mm in short axis. Vasculature: The aorta demonstrates moderate atherosclerotic calcification. The aortic arch measures 3.2 cm. The descending thoracic aorta measures 3.3 cm. The ascending thoracic aorta measures 3.6 x 3.6 cm. The descending thoracic aorta is mildly tortuous and unfolded. Spleen: An accessory splenule is present. Stomach: The visualized upper intra-abdominal structures are normal. Bones/joints: Postoperative changes involving the lower cervical spine are incompletely visualized. Anterior sideplate and screws are present involving the lower cervical spine. There is stable grade 1 anterior spondylolisthesis of C7 on T1. There is increase in thoracic kyphosis.The thoracic spine demonstrates moderate degenerative changes at multiple levels. There is mild diffuse osteopenia. There are mild compressive changes involving the CT 7, T8, T9 and T10 vertebral bodies, stable since 12/20/2022. There is a mildly angulated fracture involving the manubrium which is new since 12/20/2022 but present on 01/01/2024. Correlate clinically. Soft tissues: No significant soft tissue edema. Other findings: Evaluation is limited by the lack of intravenous contrast. IMPRESSION: 1. Minor ectasia of the thoracic aorta. 2. Mild stable emphysema. 3. Manubrial fracture new since 12/20/2022 by present on 01/01/2024. 4. A few pulmonary nodules bilaterally, not significantly changed. For patients at low risk (minimal or absent history of smoking and of other known risk factors), recommend CT Chest at 3-6 months, then consider CT Chest at 18-24 months. For patients at high risk (history of smoking or of other known risk factors), recommend CT Chest at 3-6 months, then CT Chest at 18-24 months. (Reference: Jayleen) REFERENCES: Myrahocharline H, et al. Guidelines for Management of Incidental Pulmonary Nodules Detected on CT Images: From the Fleischner Society 2017. Radiology. 2017;284(1):228-243.
== END 2024-06-15 23:59 | disposition home or self-care (01) ==
LOC: RAD 15:03
PROVIDERS: PCP Family Medicine; Visit Provider Internal Medicine Pulmonary Disease
DX: R91.8 Other nonspecific abnormal finding of lung field (principal)
CPT/HCPCS: 71250

== ENCOUNTER 2024-10-31 10:16 | Emergency (ER) | payer MEDICARE, SELFPAY ==
[2024-10-31] VITALS (15 sets, daily range): BP systolic 145–182; BP diastolic 72–100; PULSE 68–84; RESP 15–24; TEMP 36.6; O2SAT 94–98; BMI 24.3
--- NOTE | 2024-10-31 10:19 | ECG_ITS ---
APPROVED REPORT Exam: Resting ECG HR:84 bpm ECG Measurements Heart Rate 84 AXES QRSd 88 QRS 41 QT 341 T 73 QTc 382 Conclusion ATRIAL FIBRILLATION WITH ABERRANT CONDUCTION OR VENTRICULAR PREMATURE COMPLEXES NONSPECIFIC ST & T-WAVE ABNORMALITY ABNORMAL RHYTHM ECG UNCONFIRMED REPORT A-fib with ventricular rate of 84 bpm. PVC noted. No ST elevation or depression Electronically signed by : RODNEY STEPHENSON, 10/31/2024 16:32:43
--- NOTE | 2024-10-31 10:22 | XR_ITS ---
FINAL REPORT TECHNIQUE: Single view chest CLINICAL HISTORY: CHEST PAIN left sided COMPARISON: 07/30/2022 FINDINGS: A single view of the chest was obtained. There has been interval placement of embolization coils in the left neck soft tissues. The heart and mediastinum are within normal limits. The lungs are clear. There is no pneumothorax. IMPRESSION: No acute cardiopulmonary process. Reviewed, Interpreted and Dictated by Rachel Rodriguez MD Transcribed by Sheree Barlow Authenticated and [facility]
[2024-10-31 10:27] LABS: Basophils # 0.1 K/mm3 (0-0.2); Basophils % 0.9 % (0.1-2.0); Eosinophils # 0.4 K/mm3 (0.0-0.4); Eosinophils % 3.4 % (0.1-12.0); Hematocrit 40.9 % (42.0-52.0); Hemoglobin 13.9 g/dL (14.1-18.0); Lymphocytes # 1.8 K/mm3 (0.7-4.5); Lymphocytes % 17.3 % (10-50); Mean Corpuscular Hemoglobin 31.6 pg (27.0-31.2); Mean Platelet Volume 8.5 fl (7.4-10.4); Monocytes # 1.2 K/mm3 (0.1-1.0); Neutrophils # 7.1 K/mm3 (1.8-7.8); Platelet Count 272 K/mm3 (142-424); Red Cell Distribution Width 12.6 % (11.5-17.5); White Blood Count 10.6 K/mm3 (4.8-10.8)
--- NOTE | 2024-10-31 10:38 | PC.NURSE ---
XR AT BEDSIDE
[2024-10-31 10:49] LABS: Albumin Level 4.4 g/dl (3.5-5.0); Chloride 100 mmol/L (98-107); Sodium 138 mmol/L (136-145)
[2024-10-31 10:50] LABS: Potassium 3.4 mmoL/L (3.5-5.1)
[2024-10-31 10:52] LABS: Alanine Aminotransferase 22 U/L (12-78); Albumin/Globulin Ratio 1.2 (1.1-1.8); Alkaline Phosphatase 77 U/L (38-126); Anion Gap 9.4 mEq/L (5-15); Aspartate Amino Transferase 30 U/L (17-59); Bilirubin,Total 0.8 mg/dl (0.2-1.3); Blood Urea Nitrogen 21 mg/dl (9-20); Calcium 9.9 mg/dl (8.4-10.2); Carbon Dioxide 32 mmol/L (22.0-30.0); Estimated Glomerular Filt Rate 64 ml/min (>60); GFR (African American) 77 ML/MIN (>60); Globulin 3.6 g/dL (1.3-3.2); Glucose 107 mg/dl (74-100)
[2024-10-31 11:07] LABS: Troponin I < 0.01 ng/ml (0.00-0.034)
--- NOTE | 2024-10-31 11:24 | ED_ITS ---
Discharge Plan Disposition Patient Disposition: Home, Self-Care Prescriptions Prescriptions: No Action tamsulosin 0.4 mg capsule 0.4 mg PO QHS Patient Comments: TAKE 1 CAPSULE BY MOUTH EVERY DAY AT NIGHT trazodone 100 mg tablet 100 mg PO HS Patient Comments: TAKE 1 TABLET BY MOUTH EVERY DAY AT NIGHT pantoprazole 40 mg tablet,delayed release (DR/EC) 40 mg PO DAILY atorvastatin 40 mg tablet 40 mg PO HS Qty: 90 3RF aspirin [Adult Aspirin Regimen] 81 mg tablet,delayed release (DR/EC) 81 mg PO DAILY Qty: 30 2RF Referrals Follow up/Referrals: Abhijeet Gerber MD [Primary Care Provider] - See instructions Timmy Castaneda MD [Staff Physician] - See instructions Activity Restrictions/Add. Instructions Additional Instructions/Restrictions: You are being referred to Dr. Castaneda with urology. Contact him at this number at your earliest convenience to set up an appointment: [phone]. Follow-up with your primary care physician in the next 1 to 2 days if symptoms do not improve. Continue to hydrate well by drinking plenty of fluids. If you develop any new or worsening symptoms, or if you become concerned for your health for any reason, return to the emergency department for evaluation Clinical Impressions Clinical Impression: Acute on chronic urinary retention, Fatigue, Left-sided chest pain Instructions Patient Instructions: DI for Atypical Chest Pain, DI for Fatigue, DI for Urinary Retention in Men Print Language Print Language: Turkmen Discharge ED Provider: Samuel Rios Adult HPI General Chief complaint: Chest Pain Stated complaint: CP Time Seen by Provider: 10/31/24 10:37 Mode of Arrival: Family Vehicle Source of Information: Patient, Relative and Medical Record Description of Symptoms (Recalled from ER Triage Doc. by RN): Pt c/o anterior chest pressure for days. Reports nausea, vomiting, generalized pain, and weakness. He also has been having dizzy episodes. He reports a worsening chronic cough. He does have 3 stents, most recently as of 1.[address] Rutherford. 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 Patient states that he has had intermittent sharp left-sided chest pain over the last several weeks. He reports that over the last several days, he has had difficulty urinating is had to self cath, which she has not had to do for some time but previously had to self cath because his prostate was enlarged. He denies any abdominal pain. He also reports some recent chills. He feels generally fatigued and has a chronic cough that is unchanged from his baseline. Related Data Home Medications ?Medication ?Instructions ?Recorded ?Confirmed pantoprazole 40 mg tablet,delayed 40 mg PO DAILY 09/06/24 10/31/24 release tamsulosin 0.4 mg capsule 0.4 mg PO QHS 09/06/24 10/31/24 trazodone 100 mg tablet 100 mg PO HS 09/06/24 10/31/24 Previous Rx's ?Medication ?Instructions ?Recorded aspirin 81 mg tablet,delayed 81 mg PO DAILY #30 tabs 03/07/24 release (Adult Aspirin Regimen) atorvastatin 40 mg tablet 40 mg PO HS #90 tabs 09/06/24 Allergies Allergy/AdvReac Type Severity Reaction Status Date / Time No Known Allergies Allergy Verified 09/06/24 10:48 [facility] Disclaimer: The information contained in this section may have been updated after the patient was seen, as this information can be updated by other users. Medical History Tricuspid regurgitation Mitral regurgitation LVH (left ventricular hypertrophy) Stenosis of carotid artery Hoarseness, persistent Hyperlipidemia Anemia HAMIDA (acute kidney injury) BPH (benign prostatic hyperplasia) NSTEMI (non-ST elevated myocardial infarction) Septic shock Non-ST elevation NV (NSTEMI) Lymphadenopathy Hypertension CAD (coronary artery disease), [place] coronary artery 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 and has a proximal calcified 70 to 80% stenosis with a distal 60 to 70% calcified stenosis The GAINES ventriculogram reveals Ejection fraction of 50% with mild anterior wall hypokinesis The left ventricular end-diastolic pressure 20 mmHg Left subclavian artery has a proximal calcified 20 to 30% stenosis with a widely patent left internal mammary artery IMPRESSION Critical coronary artery disease as described above with ejection fraction of 50% and mild anterior wall hypokinesis Mildly elevated LVEDP Nonflow limiting left subclavian artery with widely patent left internal mammary artery PLAN 1. Patient has critical coronary disease which is best served with coronary artery bypass surgery. I recommend transferring patient to [facility] soon as possible for surgical revascularization 2. Low-dose beta-blockers along with aspirin and low-dose nitrates 3. Start heparin drip 4. Start high intensity statin Electronically signed by : Artie Rutherford MD 08/02/2022 07:58:21 Angina pectoris Encounter for pre-operative cardiovascular clearance Vocal cord mass Impacted cerumen of right ear Dysphonia Mediastinal lymphadenopathy Multiple lung nodules on CT Stopped smoking with greater than 30 pack year history Pulmonary emphysema Vocal cord edema Hoarseness Hypertension BPH (benign prostatic hyperplasia) Surgical History Hx of neck surgery Previous back surgery Family History Other Hx of CABG Social History Smoking Status: Never smoker alcohol intake: never current occupational status: other Travel in the last 8 weeks: None current occupational exposures/hazards: No Have you lived/traveled outside [place] in past 30 days?: No Contact w/someone who lives/traveled outside [place] past 30 days?: No Exposure to someone with infectious disease in past 14 days?: No Do you have a fever (greater than 100.4 F or 38 C)?: No Have you tested positive for COVID-19: No Exposed to someone with COVID-19 in past 14 days?: No Do you have a sore throat?: No Do you have a cough?: No Do you have any weakness?: No Do you have any diarrhea?: No Are you experiencing any unusual bleeding?: No Do you have any muscle aches/pain?: No Do you have any abdominal pain?: No Are you experiencing loss of taste or smell?: No Other Medical History Have you received the Flu Vaccine for this season: No Have you received the Pneumonia Vaccine: No ROS Obtained: Yes Systems reviewed as appropriate & no additional complaints except as documented Physical Exam General General appearance: alert and in no apparent distress Head Head exam: atraumatic Eye Eye exam: Present normal appearance ENT ENT exam: Present normal external ear exam Neck Neck exam: Present full ROM Chest Chest inspection: Present symmetric chest wall rise Respiratory Respiratory exam: Present normal lung sounds bilaterally; Absent respiratory distress, wheezes or stridor Cardiovascular Cardiovascular exam: Present regular rate and normal rhythm Abdominal Exam Abdominal exam: Present soft; Absent distention, tenderness, guarding or rebound exam: Present deferred Extremities Exam Extremities exam: Present normal inspection Back Exam Back exam: Present normal inspection Neurological Exam Neurological exam: Present alert and oriented X3 Psychiatric Psychiatric exam: Present normal affect Skin Skin exam: Present warm and dry Medical Decision Making Medical Records Screening: Per USPSTF and CDC recommendations, given the prevalence of disease in our region, it is our hospital?s policy to screen for HIV and viral Hepatitis for all patients aged 18 and over and those with ongoing risk factors. Juan R Inquiry Pt receiving controlled substance: No Vital Signs: 10/31/24 10:16 10/31/24 10:30 10/31/24 10:36 Temperature 97.9 F Temperature Source Oral Pulse Rate 72 74 Pulse Rate [Right] 84 Respiratory Rate 20 15 Blood Pressure 161/89 H Blood Pressure [Right Arm] 153/76 H Blood Pressure Mean Blood Pressure Mean [Right Arm] 101 Blood Pressure Source Blood Pressure Source [Right Arm] Automatic Cuff 02 Sat by Pulse Oximetry 98 97 Oxygen Delivery Method Room Air Room Air 10/31/24 10:45 10/31/24 11:00 10/31/24 11:18 Temperature Temperature Source Pulse Rate 68 72 70 Pulse Rate [Right] Respiratory Rate 18 20 24 Blood Pressure 145/72 H 153/76 H 150/83 H Blood Pressure [Right Arm] Blood Pressure Mean Blood Pressure Mean [Right Arm] Blood Pressure Source Blood Pressure Source [Right Arm] 02 Sat by Pulse Oximetry 96 94 L 95 Oxygen Delivery Method Room Air Room Air Room Air 10/31/24 11:31 10/31/24 11:45 10/31/24 12:00 Temperature Temperature Source Pulse Rate 70 69 70 Pulse Rate [Right] Respiratory Rate 20 24 22 Blood Pressure 156/85 H 176/97 H 182/87 H Blood Pressure [Right Arm] Blood Pressure Mean 108 Blood Pressure Mean [Right Arm] Blood Pressure Source Blood Pressure Source [Right Arm] 02 Sat by Pulse Oximetry 96 97 96 Oxygen Delivery Method Room Air Room Air Room Air 10/31/24 12:16 10/31/24 12:30 10/31/24 12:46 Temperature Temperature Source Pulse Rate 69 Pulse Rate [Right] Respiratory Rate 19 19 17 Blood Pressure 153/100 H 179/91 H 155/74 H Blood Pressure [Right Arm] Blood Pressure Mean Blood Pressure Mean [Right Arm] Blood Pressure Source Blood Pressure Source [Right Arm] 02 Sat by Pulse Oximetry 97 Oxygen Delivery Method Room Air 10/31/24 13:00 10/31/24 13:16 10/31/24 13:50 Temperature 97.9 F Temperature Source Oral Pulse Rate 72 70 Pulse Rate [Right] Respiratory Rate 21 18 19 Blood Pressure 151/74 H 163/75 H 156/78 H Blood Pressure [Right Arm] Blood Pressure Mean Blood Pressure Mean [Right Arm] Blood Pressure Source Automatic Cuff Blood Pressure Source [Right Arm] 02 Sat by Pulse Oximetry 98 Oxygen Delivery Method Room Air Room Air Lab Data Lab Results 10/31/24 10:18: WBC 10.6, RBC 4.40 L, Hgb 13.9 L, Hct 40.9 L, MCV 93.0, MCH 31.6 H, MCHC 34.0, RDW 12.6, Plt Count 272, MPV 8.5, Neut % (Auto) 67.0, Lymph % (Auto) 17.3, [place] % (Auto) 11.0 H, Eos % (Auto) 3.4, Baso % (Auto) 0.9, Neut # (Auto) 7.1, Lymph # (Auto) 1.8, [place] # (Auto) 1.2 H, Eos # (Auto) 0.4, Baso # (Auto) 0.1, Sodium 138, Potassium 3.4 L, Chloride 100, Carbon Dioxide 32 H, Anion Gap 9.4, BUN 21 H, Creatinine 1.10, Estimated GFR 64, Est GFR ( Amer) 77, Glucose 107 H, Calcium 9.9, Magnesium 1.8, Total Bilirubin 0.8, AST 30, ALT 22, Alkaline Phosphatase 77, Troponin I < 0.01, NT-Pro-B Natriuret Pep 247, Total Protein 8.0, Albumin 4.4, Globulin 3.6 H, Albumin/Globulin Ratio 1.2, HCV Ab EDDIE w/Rflx PCR Qn Negative, HIV Ag/Ab Combo Qual Negative 10/31/24 11:54: Urine Color Yellow, Urine Appearance Clear, Urine pH 6.0, Ur Specific [place] 1.025, Urine Protein 30, Urine Glucose (UA) Negative, Urine Ketones Negative, Urine Blood Trace-i, Urine Nitrate Negative, Urine Bilirubin Negative, Urine Urobilinogen 0.2, Ur Leukocyte Esterase Small, Urine RBC 3-5, Urine WBC 3-5, Ur Squamous Epith Cells Occasional, Urine Bacteria 1+ 10/31/24 12:43: Troponin I < 0.01 10/31/24 10:18 10/31/24 10:18 Orders (Tests/Meds): ORDERS Category Date Time Status XR chest portable Stat Exams 10/31/24 10:22 Completed Complete Blood Count Auto Diff Stat Lab 10/31/24 10:18 Completed Comprehensive Metabolic Panel Stat Lab 10/31/24 10:18 Completed HIV Combo Stat Lab 10/31/24 10:18 Completed Hepatitis C Ab Qual. W/ RFX Stat Lab 10/31/24 10:18 Completed MAG [Magnesium] Stat Lab 10/31/24 10:18 Completed NT Pro Brain Natriuretic Pep. Stat Lab 10/31/24 10:18 Completed Troponin I Q3H Lab 10/31/24 12:43 Completed Troponin I Stat Lab 10/31/24 10:18 Completed UA [Urinalysis and Microscopic] Stat Lab 10/31/24 11:54 Completed ECG Data Tracing #1: I reviewed this ECG and interpreted as documented below: On initial interpretation it appears as this may be afib, however it looks as if there are small P waves prior to QRS complexes. PVC is appreciated. No ST elevation or depression is noted. 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 Patient states that he has had intermittent sharp left-sided chest pain over the last several weeks. He reports that over the last several days, he has had difficulty urinating is had to self cath, which she has not had to do for some time but previously had to self cath because his prostate was enlarged. He denies any abdominal pain. He also reports some recent chills. He feels generally fatigued and has a chronic cough that is unchanged from his baseline. On arrival, patient is hypertensive but HR within normal limits, breathing comfortably on room air, maintaining appropriate oxygen saturations. Cardiopulmonary exam is unremarkable, abdomen is soft, nontender and nondistended. Differential diagnosis includes but is not limited to: UTI, BPH, pneumonia, symptomatic anemia, ACS, pericarditis, viral respiratory illness, among others. Workup in the ED included bladder scan, CXR, troponin, EKG, BNP, UA, CMP, CBC, magnesium, rapid COVID/Flu testing. EKG interpreted by me personally and demonstrated NSR with no ST elevation or depression. PVC noted. See interpretation above. CXR interpreted by me personally. No focal consolidation, no pulmonary effusion, no pneumothorax, no widening of the mediastinum. Laboratory workup showed no leukocytosis, mildly low Hg of 13.9 and Hct of 40.9, mildly low K of 3.4 but electrolytes unremarkable and non-actionable. No HAMIDA with Cr of 1.1 and BUN mildly elevated at 21. Magnesium normal at 1.8. Liver enzymes and bilirubin WNL. Troponin <0.01 x2. BNP WNL. Patient was able to give a clean catch urine with 85mL on bladder scan and demonstrated no evidence of infection or blood. Patient declined viral respiratory testing. Given patient's unremarkable workup, it is felt that the patient is appropriate for discharge at this time with referral to urology for his urinary retention. He was referred to Dr. Castaneda and given the phone number to call and schedule an appointment. Return precautions were given. All questions were answered. He and son demonstrated understanding and were in agreement with this plan. He was then discharged from the ED in stable condition. Critical Care Critical Care Time Critical Care Time: No
[2024-10-31 11:41] LABS: Magnesium 1.8 mg/dl (1.6-2.3)
[2024-10-31 11:52] LABS: NT Pro Brain Natriuretic Pep. 247 pg/mL (0-450)
[2024-10-31 12:02] LABS: Microscopic, Urine URINE MICROSCOPIC (MICROSCOPIC)
[2024-10-31 12:12] LABS: Appearance,Urine CLEAR (Clear); Bilirubin,Urine Negative (Negative); Blood, Urine TRACE-I (Negative); Color,Urine YELLOW (Yellow); Glucose,Urine (UA) Negative (Negative); Ketones,Urine Negative (Negative); Leukocyte Esterase,Urine SMALL (Negative); Nitrate,Urine Negative (Negative); Protein,Urine 30 (Negative); Specific Gravity, Urine 1.025 (1.005-1.030); Urobilinogen,Urine 0.2 EU/dl (0.2)
[2024-10-31 12:29] LABS: Bacteria,Urine 1+ /lpf; Squamous Epithelial Cell,Urine Occasional #/hpf (0-5)
--- NOTE | 2024-10-31 12:40 | PC.NURSE ---
Paatient and family refused to do a covid/flu swab. Stated trhat he doesnt need it.
[2024-10-31 13:20] LABS: Troponin I < 0.01 ng/ml (0.00-0.034)
[2024-10-31 13:43] LABS: HIV Combo NEGATIVE (Negative)
[2024-10-31 13:52] LABS: Hepatitis C Ab Qual. W/ RFX NEGATIVE (Negative)
== END 2024-10-31 13:58 | disposition home or self-care (01) ==
PROVIDERS: Emergency Provider Student in an Organized Health Care Education/Training Program; PCP Family Medicine
DX: R07.9 Chest pain, unspecified (principal); R53.83 Other fatigue; R33.9 Retention of urine, unspecified; R11.2 Nausea with vomiting, unspecified; R42 Dizziness and giddiness; R05.9 Cough, unspecified
CPT/HCPCS: 71045; 80053; 81001; 83735; 83880; 84484; 85025; 86803; 87389; 93005; 99284

== ENCOUNTER 2024-11-05 10:00 | Outpatient (CLI) | payer BC, SELFPAY ==
[2024-11-05 16:16] LABS: Microscopic, Urine URINE MICROSCOPIC (MICROSCOPIC)
[2024-11-05 22:09] LABS: Appearance,Urine CLEAR (Clear); Bilirubin,Urine Negative (Negative); Blood, Urine Negative (Negative); Color,Urine YELLOW (Yellow); Glucose,Urine (UA) Negative (Negative); Ketones,Urine Negative (Negative); Leukocyte Esterase,Urine SMALL (Negative); Nitrate,Urine Negative (Negative); Protein,Urine Negative (Negative); Specific Gravity, Urine 1.025 (1.005-1.030); Urobilinogen,Urine 0.2 EU/dl (0.2)
[2024-11-06 00:26] LABS: Squamous Epithelial Cell,Urine Occasional #/hpf (0-5); WBC,Urine 50-100 #/hpf (0-3)
[2024-11-06 00:27] LABS: Bacteria,Urine 4+ /lpf
== END 2024-11-05 23:59 | disposition home or self-care (01) ==
LOC: LAB.DROPOF 11-06 13:04
PROVIDERS: PCP Urology; Visit Provider Urology
DX: R33.9 Retention of urine, unspecified (principal)
CPT/HCPCS: 81001; 87086; 87088; 87186